=== PATIENT | male | born 1960 | race Caucasian/White ===

== ENCOUNTER 2018-12-26 23:15 | Inpatient (IN) | payer MEDICARE ==
[2018-12-27] MEDS ORDERED: ONDANSETRON 4 MG TAB PO (00:30)
[2018-12-27] MEDS: ACCU-CHEK XX (02:00)
[2018-12-27] MEDS: MIDODRINE 5 MG TAB PO ×4 (05:38→21:25)
[2018-12-27 05:42] LABS: ADD MAN DIFF? NO
[2018-12-27 05:56] LABS: ABNORMAL IP MESSAGE 1; BASOPHILS % 0.2 % (0.0-2.0); EOSINOPHILS # 0.2 10^3/ul (0.0-0.5); EOSINOPHILS % 2.2 % (0.0-7.0); HEMATOCRIT 19.5 % (42.0-52.0); LYMPHOCYTES # 1.3 10^3/ul (0.8-2.9); LYMPHOCYTES % 15.2 % (15.0-51.0); MEAN CORPUSCULAR HEMOGLOBIN 29.9 pg (29.0-33.0); MEAN CORPUSCULAR HGB CONC 30.8 g/dl (32.0-37.0); MEAN PLATELET VOLUME 11.5 fl (7.4-10.4); MONOCYTE # 0.7 10^3/ul (0.3-0.9); NEUTROPHIL # 6.1 10^3/ul (1.6-7.5); NEUTROPHILS % 73.6 % (39.0-77.0); NUCLEATED RED BLOOD CELLS% 0.2 /100WBC (0.0-0.0); PLATELET COUNT 118 10^3/UL (140-415); POSITIVE DIFF @See below; RED BLOOD COUNT 2.01 10^6/ul (4.70-6.10); RED CELL DISTRIBUTION WIDTH 18.1 % (11.5-14.5)
[2018-12-27 05:56] LABS: WHITE BLOOD COUNT 8.4 10^3/ul (4.8-10.8)
[2018-12-27 06:27] LABS: ANION GAP 12 (5-13); BLOOD UREA NITROGEN 68 mg/dl (7-20); CALCIUM 8.5 mg/dl (8.4-10.2); CARBON DIOXIDE 26 mmol/L (21-31); CHLORIDE 104 mmol/L (97-110); CREATININE 5.97 mg/dl (0.61-1.24); Estimated GFR 10 mL/min (>60); GLUCOSE 104 mg/dl (70-220); POTASSIUM 4.6 mmol/L (3.5-5.1); SODIUM 142 mmol/L (135-144)
[2018-12-27] MEDS: INSULIN ASPART [NOVOLOG] 3 ML PEN SC ×4 (07:35→21:00)
[2018-12-27] MEDS ORDERED: CYMBALTA 30 MG PO (09:00)
[2018-12-27] MEDS: PREGABALIN 25 MG CAP PO ×2 (09:00→21:13)
[2018-12-27] MEDS: FERROUS SULFATE (EC) 325 MG TAB PO ×2 (09:24→21:13)
[2018-12-27] MEDS: ATORVASTATIN 10 MG TAB PO (09:24)
[2018-12-27] MEDS: MULTIVIT/CA CARB/B CMPLX/FA TAB PO (09:24)
[2018-12-27] MEDS: WARFARIN 2 MG TAB PO (09:24)
[2018-12-27] MEDS: PANTOPRAZOLE (EC) 40 MG TAB PO (09:24)
[2018-12-27] MEDS: DULOXETINE 30 MG CAP DR PO (09:24)
[2018-12-27] MEDS: HYDROCORTISONE 20 MG TAB PO ×2 (09:24→21:13)
[2018-12-27] MEDS ORDERED: GLUCOSE GEL 15 GRAM TUBE BUCCAL (11:00)
[2018-12-27] MEDS ORDERED: GLUCAGON 1 MG INJ IM (11:00)
[2018-12-27] MEDS ORDERED: DEXTROSE 50% 50 ML SYRINGE IV (11:00)
[2018-12-27] MEDS ORDERED: GLUCOSE GEL 15 GRAM TUBE PO ×2 (11:00)
[2018-12-27] MEDS ORDERED: NORepinephrine 8MG/250 ML (PMX 250 ML IV (11:00)
[2018-12-27 11:11] LABS: ALANINE AMINOTRANSFERASE 32 IU/L (13-69); ALBUMIN 2.5 g/dl (3.3-4.9); ALKALINE PHOSPHATASE 57 IU/L (42-121); ASPARTATE AMINO TRANSFERASE 42 IU/L (15-46); BILIRUBIN,INDIRECT 0.2 mg/dl (0-1.1); BILIRUBIN,TOTAL 0.2 mg/dl (0.2-1.3); TOTAL PROTEIN 4.8 g/dl (6.1-8.1)
[2018-12-27 11:29] LABS: INR 2.83; PROTIME 29.8 Sec (11.9-14.9); PT RATIO 2.3
[2018-12-27] MEDS: ACETAMINOPHEN 325 MG TAB PO (11:58)
[2018-12-27 15:10] LABS: HEMATOCRIT 25.3 % (42.0-52.0); HEMOGLOBIN 8.2 g/dl (14.0-18.0)
[2018-12-27] MEDS: NORepinephrine 8MG/250 ML (PMX 250 ML IV (15:22)
[2018-12-27] MEDS ORDERED: WARFARIN 2 MG TAB PO (17:00)
[2018-12-27] MEDS: SEVELAMER CARBONATE 0.8 GM PKT PO (17:35)
[2018-12-27 23:24] LABS: HEMATOCRIT 24.9 % (42.0-52.0); HEMOGLOBIN 7.9 g/dl (14.0-18.0)
[2018-12-28] MEDS: ACCU-CHEK XX (02:00)
[2018-12-28] MEDS: MIDODRINE 5 MG TAB PO ×4 (05:42→21:33)
[2018-12-28 06:28] LABS: ADD MAN DIFF? NO
[2018-12-28 06:29] LABS: BASOPHILS % 0.2 % (0.0-2.0); EOSINOPHILS # 0.2 10^3/ul (0.0-0.5); EOSINOPHILS % 2.6 % (0.0-7.0); HEMATOCRIT 24.7 % (42.0-52.0); HEMOGLOBIN 7.6 g/dl (14.0-18.0); LYMPHOCYTES % 11.6 % (15.0-51.0); MEAN CORPUSCULAR HEMOGLOBIN 29.7 pg (29.0-33.0); MEAN CORPUSCULAR HGB CONC 30.8 g/dl (32.0-37.0); MEAN CORPUSCULAR VOLUME 96.5 fl (82.0-101.0); MEAN PLATELET VOLUME 11.4 fl (7.4-10.4); MONOCYTE # 0.7 10^3/ul (0.3-0.9); MONOCYTES % 7.2 % (0.0-11.0); NEUTROPHIL # 6.9 10^3/ul (1.6-7.5); NEUTROPHILS % 77.1 % (39.0-77.0); NUCLEATED RED BLOOD CELLS # 0.1 10^3/ul (0.0-0.0); NUCLEATED RED BLOOD CELLS% 0.9 /100WBC (0.0-0.0); PLATELET COUNT 122 10^3/UL (140-415); RED BLOOD COUNT 2.56 10^6/ul (4.70-6.10); RED CELL DISTRIBUTION WIDTH 17.9 % (11.5-14.5)
[2018-12-28 07:09] LABS: ANION GAP 14 (5-13); BLOOD UREA NITROGEN 77 mg/dl (7-20); CARBON DIOXIDE 25 mmol/L (21-31); CHLORIDE 103 mmol/L (97-110); CREATININE 7.26 mg/dl (0.61-1.24); Estimated GFR 8 mL/min (>60); GLUCOSE 86 mg/dl (70-220); PHOSPHORUS 7.9 mg/dl (2.5-4.9); POTASSIUM 4.9 mmol/L (3.5-5.1); SODIUM 142 mmol/L (135-144)
[2018-12-28] MEDS: INSULIN ASPART [NOVOLOG] 3 ML PEN SC ×4 (07:35→20:16)
[2018-12-28] MEDS: PREGABALIN 25 MG CAP PO ×2 (08:17→20:16)
[2018-12-28] MEDS: MULTIVIT/CA CARB/B CMPLX/FA TAB PO (08:17)
[2018-12-28] MEDS: DULOXETINE 30 MG CAP DR PO (08:17)
[2018-12-28] MEDS: ATORVASTATIN 10 MG TAB PO (08:18)
[2018-12-28] MEDS: PANTOPRAZOLE (EC) 40 MG TAB PO (08:18)
[2018-12-28] MEDS: HYDROCORTISONE 20 MG TAB PO ×2 (08:18→20:16)
[2018-12-28] MEDS: FERROUS SULFATE (EC) 325 MG TAB PO ×2 (08:18→20:16)
[2018-12-28 09:38] LABS: INR 4.61; PROTIME 43.5 Sec (11.9-14.9); PT RATIO 3.4
[2018-12-28] MEDS: IOHEXOL 14.3 MG(I)/ML (ADULT) BTL PO (12:10)
[2018-12-28 12:19] LABS: HEMATOCRIT 25.7 % (42.0-52.0); HEMOGLOBIN 8.1 g/dl (14.0-18.0)
[2018-12-28 13:53] LABS: HEPATITIS B SURFACE ANTIBODY NEGATIVE (NEGATIVE)
[2018-12-28 15:36] LABS: HEPATITIS B SURFACE ANTIGEN NEGATIVE (NEGATIVE)
[2018-12-28] MEDS ORDERED: PIPER-TAZO 2.25 GM (PMX) 50 ML IVPB (16:00)
[2018-12-28 16:04] LABS: HEMATOCRIT 25.6 % (42.0-52.0); HEMOGLOBIN 8.1 g/dl (14.0-18.0)
[2018-12-28] MEDS: SEVELAMER CARBONATE 0.8 GM PKT PO (16:53)
[2018-12-28] MEDS: ALBUMIN HUMAN 25% 100 ML IV (19:00)
[2018-12-28] MEDS: PIPER-TAZO 2.25 GM (PMX) 50 ML IVPB (20:16)
[2018-12-28 23:40] LABS: HEMATOCRIT 24.1 % (42.0-52.0); HEMOGLOBIN 7.6 g/dl (14.0-18.0)
[2018-12-29] MEDS: ACCU-CHEK XX (01:38)
[2018-12-29] MEDS: PIPER-TAZO 2.25 GM (PMX) 50 ML IVPB ×3 (04:42→20:59)
[2018-12-29] MEDS: ACETAMINOPHEN 325 MG TAB PO (04:48)
[2018-12-29 05:43] LABS: ADD MAN DIFF? NO
[2018-12-29] MEDS: MIDODRINE 5 MG TAB PO ×3 (05:49→21:00)
[2018-12-29 05:58] LABS: WHITE BLOOD COUNT 8.6 10^3/ul (4.8-10.8)
[2018-12-29 05:58] LABS: BASOPHILS % 0.2 % (0.0-2.0); EOSINOPHILS # 0.2 10^3/ul (0.0-0.5); EOSINOPHILS % 2.2 % (0.0-7.0); HEMATOCRIT 25.2 % (42.0-52.0); HEMOGLOBIN 7.9 g/dl (14.0-18.0); LYMPHOCYTES % 11.5 % (15.0-51.0); MEAN CORPUSCULAR HEMOGLOBIN 30.6 pg (29.0-33.0); MEAN CORPUSCULAR HGB CONC 31.3 g/dl (32.0-37.0); MEAN CORPUSCULAR VOLUME 97.7 fl (82.0-101.0); MONOCYTE # 0.5 10^3/ul (0.3-0.9); NEUTROPHIL # 6.8 10^3/ul (1.6-7.5); NEUTROPHILS % 79.2 % (39.0-77.0); NUCLEATED RED BLOOD CELLS% 0.3 /100WBC (0.0-0.0); PLATELET COUNT 143 10^3/UL (140-415); RED BLOOD COUNT 2.58 10^6/ul (4.70-6.10)
[2018-12-29 06:09] LABS: INR 4.02; PROTIME 39.1 Sec (11.9-14.9); PT RATIO 3.1
[2018-12-29 06:32] LABS: ANION GAP 12 (5-13); BLOOD UREA NITROGEN 41 mg/dl (7-20); CARBON DIOXIDE 27 mmol/L (21-31); CHLORIDE 101 mmol/L (97-110); CREATININE 4.89 mg/dl (0.61-1.24); Estimated GFR 12 mL/min (>60); GLUCOSE 77 mg/dl (70-220); PHOSPHORUS 5.4 mg/dl (2.5-4.9); POTASSIUM 4.3 mmol/L (3.5-5.1); SODIUM 140 mmol/L (135-144)
[2018-12-29] MEDS: INSULIN ASPART [NOVOLOG] 3 ML PEN SC ×4 (07:35→21:00)
[2018-12-29] MEDS: FERROUS SULFATE (EC) 325 MG TAB PO ×2 (08:21→20:59)
[2018-12-29] MEDS: PANTOPRAZOLE (EC) 40 MG TAB PO ×2 (08:21→21:00)
[2018-12-29] MEDS: HYDROCORTISONE 20 MG TAB PO ×2 (08:21→20:59)
[2018-12-29] MEDS: PREGABALIN 25 MG CAP PO ×2 (08:21→21:07)
[2018-12-29] MEDS: ATORVASTATIN 10 MG TAB PO (08:21)
[2018-12-29] MEDS: MULTIVIT/CA CARB/B CMPLX/FA TAB PO (08:21)
[2018-12-29] MEDS: DULOXETINE 30 MG CAP DR PO (08:21)
[2018-12-29 15:59] LABS: HEMATOCRIT 24.9 % (42.0-52.0); HEMOGLOBIN 7.7 g/dl (14.0-18.0)
[2018-12-29] MEDS: SEVELAMER CARBONATE 0.8 GM PKT PO (17:31)
[2018-12-29 23:52] LABS: HEMATOCRIT 24.9 % (42.0-52.0); HEMOGLOBIN 7.7 g/dl (14.0-18.0)
[2018-12-30] MEDS: ACCU-CHEK XX (02:06)
[2018-12-30] MEDS: PIPER-TAZO 2.25 GM (PMX) 50 ML IVPB ×3 (04:17→20:02)
[2018-12-30 04:59] LABS: ADD MAN DIFF? NO
[2018-12-30 05:07] LABS: WHITE BLOOD COUNT 9.8 10^3/ul (4.8-10.8)
[2018-12-30 05:07] LABS: BASOPHILS % 0.3 % (0.0-2.0); EOSINOPHILS # 0.1 10^3/ul (0.0-0.5); EOSINOPHILS % 1.4 % (0.0-7.0); HEMATOCRIT 25.2 % (42.0-52.0); HEMOGLOBIN 7.6 g/dl (14.0-18.0); LYMPHOCYTES # 1.1 10^3/ul (0.8-2.9); LYMPHOCYTES % 10.8 % (15.0-51.0); MEAN CORPUSCULAR HGB CONC 30.2 g/dl (32.0-37.0); MEAN CORPUSCULAR VOLUME 99.6 fl (82.0-101.0); MEAN PLATELET VOLUME 10.6 fl (7.4-10.4); MONOCYTE # 0.5 10^3/ul (0.3-0.9); MONOCYTES % 5.5 % (0.0-11.0); NEUTROPHIL # 7.9 10^3/ul (1.6-7.5); NEUTROPHILS % 81.1 % (39.0-77.0); NUCLEATED RED BLOOD CELLS% 0.4 /100WBC (0.0-0.0); PLATELET COUNT 138 10^3/UL (140-415); RED BLOOD COUNT 2.53 10^6/ul (4.70-6.10); RED CELL DISTRIBUTION WIDTH 18.4 % (11.5-14.5)
[2018-12-30] MEDS: MIDODRINE 5 MG TAB PO ×3 (05:38→22:35)
[2018-12-30 05:42] LABS: ANION GAP 10 (5-13); BLOOD UREA NITROGEN 49 mg/dl (7-20); CARBON DIOXIDE 27 mmol/L (21-31); CHLORIDE 102 mmol/L (97-110); CREATININE 6.02 mg/dl (0.61-1.24); Estimated GFR 10 mL/min (>60); GLUCOSE 85 mg/dl (70-220); PHOSPHORUS 6.9 mg/dl (2.5-4.9); POTASSIUM 4.5 mmol/L (3.5-5.1); SODIUM 139 mmol/L (135-144)
[2018-12-30] MEDS: INSULIN ASPART [NOVOLOG] 3 ML PEN SC ×4 (07:35→21:00)
[2018-12-30] MEDS: HYDROCORTISONE 20 MG TAB PO ×2 (09:15→20:44)
[2018-12-30] MEDS: PREGABALIN 25 MG CAP PO ×2 (09:15→20:44)
[2018-12-30] MEDS: PANTOPRAZOLE (EC) 40 MG TAB PO ×2 (09:15→20:44)
[2018-12-30] MEDS: MULTIVIT/CA CARB/B CMPLX/FA TAB PO (09:15)
[2018-12-30] MEDS: FERROUS SULFATE (EC) 325 MG TAB PO ×2 (09:15→20:43)
[2018-12-30] MEDS: ATORVASTATIN 10 MG TAB PO (09:15)
[2018-12-30] MEDS: DULOXETINE 30 MG CAP DR PO (09:15)
[2018-12-30 10:35] LABS: HEMATOCRIT 26.5 % (42.0-52.0); HEMOGLOBIN 8.1 g/dl (14.0-18.0)
[2018-12-30 10:56] LABS: PT RATIO 2.5
[2018-12-30] MEDS: NORepinephrine 8MG/250 ML (PMX 250 ML IV (13:23)
[2018-12-30] MEDS: ALBUMIN HUMAN 25% 100 ML IV (16:46)
[2018-12-30] MEDS: SEVELAMER CARBONATE 0.8 GM PKT PO (17:21)
[2018-12-30] MEDS: DEXTROSE 50% 50 ML SYRINGE IV (20:02)
[2018-12-31] MEDS: ACCU-CHEK XX (02:00)
[2018-12-31] MEDS: PIPER-TAZO 2.25 GM (PMX) 50 ML IVPB ×3 (04:34→20:08)
[2018-12-31 04:56] LABS: HEMATOCRIT 24.1 % (42.0-52.0); HEMOGLOBIN 7.1 g/dl (14.0-18.0)
[2018-12-31] MEDS: MIDODRINE 5 MG TAB PO ×3 (06:21→21:34)
[2018-12-31] MEDS: INSULIN ASPART [NOVOLOG] 3 ML PEN SC ×4 (07:35→20:31)
[2018-12-31] MEDS: ATORVASTATIN 10 MG TAB PO (08:53)
[2018-12-31] MEDS: HYDROCORTISONE 20 MG TAB PO ×2 (08:53→20:19)
[2018-12-31] MEDS: DULOXETINE 30 MG CAP DR PO (08:53)
[2018-12-31] MEDS: MULTIVIT/CA CARB/B CMPLX/FA TAB PO (08:53)
[2018-12-31] MEDS: FERROUS SULFATE (EC) 325 MG TAB PO ×2 (08:54→20:19)
[2018-12-31] MEDS: PREGABALIN 25 MG CAP PO ×2 (09:06→20:19)
[2018-12-31] MEDS: PANTOPRAZOLE (EC) 40 MG TAB PO ×2 (09:07→20:19)
[2018-12-31 10:33] LABS: INR 2.71; PROTIME 28.8 Sec (11.9-14.9); PT RATIO 2.3
[2018-12-31] MEDS: SEVELAMER CARBONATE 0.8 GM PKT PO (17:23)
[2018-12-31] MEDS: GLUCAGON 1 MG INJ IV (18:50)
[2018-12-31] MEDS: IOHEXOL 14.3 MG(I)/ML (ADULT) BTL PO (19:00)
[2019-01-01] MEDS: ACCU-CHEK XX (02:00)
[2019-01-01] MEDS: PIPER-TAZO 2.25 GM (PMX) 50 ML IVPB ×3 (03:40→20:20)
[2019-01-01] MEDS: MIDODRINE 5 MG TAB PO ×4 (05:23→21:00)
[2019-01-01 05:34] LABS: ADD MAN DIFF? NO
[2019-01-01 06:01] LABS: BASOPHILS % 0.1 % (0.0-2.0); EOSINOPHILS # 0.1 10^3/ul (0.0-0.5); HEMATOCRIT 28.8 % (42.0-52.0); HEMOGLOBIN 8.6 g/dl (14.0-18.0); LYMPHOCYTES % 11.4 % (15.0-51.0); MEAN CORPUSCULAR HEMOGLOBIN 30.1 pg (29.0-33.0); MEAN CORPUSCULAR HGB CONC 29.9 g/dl (32.0-37.0); MEAN CORPUSCULAR VOLUME 100.7 fl (82.0-101.0); MEAN PLATELET VOLUME 10.4 fl (7.4-10.4); MONOCYTE # 0.5 10^3/ul (0.3-0.9); MONOCYTES % 5.3 % (0.0-11.0); NEUTROPHILS % 81.2 % (39.0-77.0); PLATELET COUNT 129 10^3/UL (140-415); RED BLOOD COUNT 2.86 10^6/ul (4.70-6.10); RED CELL DISTRIBUTION WIDTH 19.2 % (11.5-14.5)
[2019-01-01 06:01] LABS: WHITE BLOOD COUNT 8.6 10^3/ul (4.8-10.8)
[2019-01-01 06:35] LABS: ANION GAP 13 (5-13); BLOOD UREA NITROGEN 31 mg/dl (7-20); CALCIUM 9.2 mg/dl (8.4-10.2); CARBON DIOXIDE 25 mmol/L (21-31); CHLORIDE 101 mmol/L (97-110); CREATININE 5.95 mg/dl (0.61-1.24); Estimated GFR 10 mL/min (>60); GLUCOSE 77 mg/dl (70-220); MAGNESIUM 2.1 mg/dl (1.7-2.5); PHOSPHORUS 6.4 mg/dl (2.5-4.9); SODIUM 139 mmol/L (135-144)
[2019-01-01] MEDS: INSULIN ASPART [NOVOLOG] 3 ML PEN SC ×4 (07:35→20:56)
[2019-01-01] MEDS: PREGABALIN 25 MG CAP PO ×2 (08:12→20:15)
[2019-01-01] MEDS: ATORVASTATIN 10 MG TAB PO (08:13)
[2019-01-01] MEDS: MULTIVIT/CA CARB/B CMPLX/FA TAB PO (08:13)
[2019-01-01] MEDS: DULOXETINE 30 MG CAP DR PO (08:13)
[2019-01-01] MEDS: HYDROCORTISONE 20 MG TAB PO ×2 (08:13→20:55)
[2019-01-01] MEDS: FERROUS SULFATE (EC) 325 MG TAB PO ×2 (08:13→20:55)
[2019-01-01] MEDS: PANTOPRAZOLE (EC) 40 MG TAB PO (08:13)
[2019-01-01 09:11] LABS: INR 2.19; PROTIME 24.4 Sec (11.9-14.9); PT RATIO 1.9
[2019-01-01 09:12] LABS: PARTIAL THROMBOPLASTIN TIME 39.1 Sec (23.0-35.0)
[2019-01-01] MEDS: DEXTROSE 50% 50 ML SYRINGE IV (11:19)
[2019-01-01] MEDS: DEXTROSE 5%-0.9% NACL 1,000 ML IV (12:00)
[2019-01-01] MEDS: SEVELAMER CARBONATE 0.8 GM PKT PO (17:23)
[2019-01-01] MEDS ORDERED: FENTAnyl 50 MCG/ML VIAL (18:36)
[2019-01-01] MEDS ORDERED: IODIXANOL LOCM 100 ML BTL (18:36)
[2019-01-01] MEDS ORDERED: MIDAZOLAM 1 MG/ML 2 ML INJ (18:36)
[2019-01-01] MEDS ORDERED: LIDOCAINE 1% (MDV) 20 ML INJ ×2 (18:36→19:17)
[2019-01-01] MEDS ORDERED: ALBUMIN HUMAN 25% 100 ML (18:40)
[2019-01-01] MEDS: ALBUMIN HUMAN 25% 100 ML IV (18:47)
[2019-01-01] MEDS: NORepinephrine 8MG/250 ML (PMX 250 ML IV (19:31)
[2019-01-01] MEDS: WARFARIN 2.5 MG TAB GTB (19:59)
[2019-01-01 21:16] LABS: PLATELET COUNT 156 10^3/UL (140-415)
[2019-01-01] MEDS: PANTOPRAZOLE 40 MG INJ IV (21:24)
[2019-01-01 21:37] LABS: INR 2.11; PROTIME 23.7 Sec (11.9-14.9); PT RATIO 1.9; THROMBIN TIME 16.4 SEC (13.8-19.1)
[2019-01-01 21:38] LABS: PARTIAL THROMBOPLASTIN TIME 43.5 Sec (23.0-35.0)
[2019-01-02] MEDS: ACCU-CHEK XX (02:00)
[2019-01-02] MEDS: ALBUMIN HUMAN 25% 100 ML IV ×2 (02:37→10:03)
[2019-01-02] MEDS: PIPER-TAZO 2.25 GM (PMX) 50 ML IVPB ×3 (04:07→20:13)
[2019-01-02] MEDS: MIDODRINE 5 MG TAB PO ×3 (05:00→21:13)
[2019-01-02] MEDS: NORepinephrine 8MG/250 ML (PMX 250 ML IV ×4 (05:39→20:27)
[2019-01-02 05:59] LABS: HEMATOCRIT 28.1 % (42.0-52.0); HEMOGLOBIN 8.3 g/dl (14.0-18.0)
[2019-01-02 06:16] LABS: LACTIC ACID 0.9 mmol/L (0.5-2.0)
[2019-01-02 06:32] LABS: AADO2 Arterial 37.1 mmHg (7.0-24.0); Allen Test ACCEPTAB; Arterial Base Excess -7.8 mmol/L (-3.0-3); Arterial Blood Gas Oxygen Sat 86.4 mmHG (95.0-98.0); Arterial COHb 0.6 % (0.0-3.0); Arterial Fraction of Oxyhgb 85.5 % (93.0-99.0); Arterial HCO3 23.2 mmol/L (22.0-26.0); Arterial MetHb 0.4 % (0.0-1.5); Arterial pCO2 84.7 mmhg (35-45); MODE NASAL CANNULA; Site Left Radial
[2019-01-02 06:53] LABS: ALANINE AMINOTRANSFERASE 28 IU/L (13-69); ALBUMIN 3.6 g/dl (3.3-4.9); ALBUMIN/GLOBULIN RATIO 1.56; ALKALINE PHOSPHATASE 78 IU/L (42-121); ANION GAP 14 (5-13); ASPARTATE AMINO TRANSFERASE 45 IU/L (15-46); BILIRUBIN,INDIRECT 0.1 mg/dl (0-1.1); BILIRUBIN,TOTAL 0.1 mg/dl (0.2-1.3); BLOOD UREA NITROGEN 35 mg/dl (7-20); CARBON DIOXIDE 25 mmol/L (21-31); CHLORIDE 102 mmol/L (97-110); CREATININE 6.86 mg/dl (0.61-1.24); Estimated GFR 8 mL/min (>60); GLUCOSE 145 mg/dl (70-220); POTASSIUM 3.7 mmol/L (3.5-5.1); SODIUM 141 mmol/L (135-144); TOTAL PROTEIN 5.9 g/dl (6.1-8.1)
[2019-01-02 07:06] LABS: ADD MAN DIFF? NO
[2019-01-02 07:11] LABS: WHITE BLOOD COUNT 14.4 10^3/ul (4.8-10.8)
[2019-01-02 07:11] LABS: BASOPHIL # 0.1 10^3/ul (0.0-0.1); BASOPHILS % 0.4 % (0.0-2.0); EOSINOPHILS # 0.4 10^3/ul (0.0-0.5); EOSINOPHILS % 2.8 % (0.0-7.0); HEMATOCRIT 32.2 % (42.0-52.0); HEMOGLOBIN 9.5 g/dl (14.0-18.0); LYMPHOCYTES # 1.9 10^3/ul (0.8-2.9); LYMPHOCYTES % 12.9 % (15.0-51.0); MEAN CORPUSCULAR HEMOGLOBIN 30.2 pg (29.0-33.0); MEAN CORPUSCULAR HGB CONC 29.5 g/dl (32.0-37.0); MEAN CORPUSCULAR VOLUME 102.2 fl (82.0-101.0); MEAN PLATELET VOLUME 10.4 fl (7.4-10.4); MONOCYTE # 0.8 10^3/ul (0.3-0.9); MONOCYTES % 5.8 % (0.0-11.0); NEUTROPHILS % 76.6 % (39.0-77.0); NUCLEATED RED BLOOD CELLS # 0.1 10^3/ul (0.0-0.0); NUCLEATED RED BLOOD CELLS% 0.8 /100WBC (0.0-0.0); PLATELET COUNT 156 10^3/UL (140-415); RED BLOOD COUNT 3.15 10^6/ul (4.70-6.10); RED CELL DISTRIBUTION WIDTH 19.5 % (11.5-14.5)
[2019-01-02] MEDS: INSULIN ASPART [NOVOLOG] 3 ML PEN SC ×4 (07:35→22:39)
[2019-01-02] MEDS: PREGABALIN 25 MG CAP PO ×2 (08:34→20:29)
[2019-01-02] MEDS: FERROUS SULFATE (EC) 325 MG TAB PO ×2 (08:34→20:28)
[2019-01-02] MEDS: DULOXETINE 30 MG CAP DR PO (08:34)
[2019-01-02] MEDS: HYDROCORTISONE 20 MG TAB PO (08:34)
[2019-01-02] MEDS: ATORVASTATIN 10 MG TAB PO (08:34)
[2019-01-02] MEDS: MULTIVIT/CA CARB/B CMPLX/FA TAB PO (08:35)
[2019-01-02] MEDS: PANTOPRAZOLE 40 MG INJ IV ×2 (09:01→20:14)
[2019-01-02 09:49] LABS: AADO2 Arterial 310.9 mmHg (7.0-24.0); Allen Test ACCEPTAB; Arterial Base Excess -4.4 mmol/L (-3.0-3); Arterial Blood Gas Oxygen Sat 97.3 mmHG (95.0-98.0); Arterial COHb 0.2 % (0.0-3.0); Arterial Fraction of Oxyhgb 96.7 % (93.0-99.0); Arterial HCO3 25.3 mmol/L (22.0-26.0); Arterial MetHb 0.4 % (0.0-1.5); Arterial pCO2 75.3 mmhg (35-45); Blood Gas IEPAP 20/5; Blood Gas PS 15; MODE MASK - BIPAP; Site Right Radial
[2019-01-02 11:05] LABS: LACTIC ACID 0.6 mmol/L (0.5-2.0)
[2019-01-02 11:14] LABS: PROCALCITONIN 0.87 ng/mL (0.00-0.10)
[2019-01-02 11:29] LABS: INR 2.03; PT RATIO 1.8
[2019-01-02 12:17] LABS: ALANINE AMINOTRANSFERASE 27 IU/L (13-69); ALBUMIN/GLOBULIN RATIO 1.66; ALKALINE PHOSPHATASE 83 IU/L (42-121); ANION GAP 14 (5-13); ASPARTATE AMINO TRANSFERASE 38 IU/L (15-46); BILIRUBIN,INDIRECT 0.2 mg/dl (0-1.1); BILIRUBIN,TOTAL 0.2 mg/dl (0.2-1.3); BLOOD UREA NITROGEN 22 mg/dl (7-20); CALCIUM 8.9 mg/dl (8.4-10.2); CARBON DIOXIDE 27 mmol/L (21-31); CHLORIDE 100 mmol/L (97-110); CREATININE 4.29 mg/dl (0.61-1.24); Estimated GFR 14 mL/min (>60); GLUCOSE 125 mg/dl (70-220); MAGNESIUM 1.9 mg/dl (1.7-2.5); POTASSIUM 3.3 mmol/L (3.5-5.1); SODIUM 141 mmol/L (135-144); TOTAL PROTEIN 6.4 g/dl (6.1-8.1); TRIGLYCERIDES 148 mg/dl (0-149)
[2019-01-02 12:24] LABS: PREALBUMIN 10.3 mg/dl (17.6-36.0)
[2019-01-02] MEDS: HYDROCORTISONE 100 MG INJ IV ×2 (13:51→21:18)
[2019-01-02] MEDS: DEXTROSE 5%-0.9% NACL 1,000 ML IV (13:52)
[2019-01-02] MEDS ORDERED: VANCOMYCIN IV PER PHARMACY XX (15:00)
[2019-01-02] MEDS: WARFARIN 2.5 MG TAB GTB (16:24)
[2019-01-02] MEDS: SEVELAMER CARBONATE 0.8 GM PKT PO (16:43)
[2019-01-02] MEDS: VASOPRESSIN 60 UNIT in DEXTROSE 5% 57 ML IV (17:39)
[2019-01-02] MEDS: VANCOMYCIN HCL 2 GM in SOD CHLORIDE 0.9% 500 ML IVPB (20:13)
[2019-01-03 01:01] LABS: HEMATOCRIT 25.1 % (42.0-52.0); HEMOGLOBIN 7.5 g/dl (14.0-18.0)
[2019-01-03] MEDS: SOD CHLORIDE 0.9% 250 ML IV* (01:53)
[2019-01-03] MEDS: ACCU-CHEK XX ×4 (02:00→21:49)
[2019-01-03] MEDS: NORepinephrine 8MG/250 ML (PMX 250 ML IV ×2 (02:01→08:43)
[2019-01-03] MEDS: DEXTROSE 5%-0.9% NACL 1,000 ML IV (04:00)
[2019-01-03] MEDS: PIPER-TAZO 2.25 GM (PMX) 50 ML IVPB ×2 (04:53→12:40)
[2019-01-03 05:10] LABS: AADO2 Arterial 92.1 mmHg (7.0-24.0); Allen Test ACCEPTAB; Arterial Base Excess -4.9 mmol/L (-3.0-3); Arterial Blood Gas Oxygen Sat 92.7 mmHG (95.0-98.0); Arterial COHb 0.6 % (0.0-3.0); Arterial Fraction of Oxyhgb 91.7 % (93.0-99.0); Arterial HCO3 23.6 mmol/L (22.0-26.0); Arterial MetHb 0.5 % (0.0-1.5); Arterial pCO2 63.8 mmhg (35-45); MODE NASAL CANNULA; Site Right Radial
[2019-01-03] MEDS: HYDROCORTISONE 100 MG INJ IV ×3 (05:34→21:49)
[2019-01-03] MEDS: MIDODRINE 5 MG TAB PO ×3 (05:34→21:49)
[2019-01-03 07:54] LABS: IMMEDIATE SPIN CROSSMATCH 1 3
[2019-01-03 07:54] LABS: ADD MAN DIFF? NO
[2019-01-03 07:57] LABS: WHITE BLOOD COUNT 9.2 10^3/ul (4.8-10.8)
[2019-01-03 07:57] LABS: ABNORMAL IP MESSAGE 1; HEMATOCRIT 25.5 % (42.0-52.0); HEMOGLOBIN 7.7 g/dl (14.0-18.0); LYMPHOCYTES # 0.5 10^3/ul (0.8-2.9); LYMPHOCYTES % 5.2 % (15.0-51.0); MEAN CORPUSCULAR HGB CONC 30.2 g/dl (32.0-37.0); MEAN CORPUSCULAR VOLUME 99.2 fl (82.0-101.0); MEAN PLATELET VOLUME 10.6 fl (7.4-10.4); MONOCYTE # 0.4 10^3/ul (0.3-0.9); MONOCYTES % 4.4 % (0.0-11.0); NEUTROPHIL # 8.2 10^3/ul (1.6-7.5); NEUTROPHILS % 89.6 % (39.0-77.0); NUCLEATED RED BLOOD CELLS% 0.3 /100WBC (0.0-0.0); PLATELET COUNT 76 10^3/UL (140-415); POSITIVE DIFF @See below; RED BLOOD COUNT 2.57 10^6/ul (4.70-6.10); RED CELL DISTRIBUTION WIDTH 19.9 % (11.5-14.5)
[2019-01-03] MEDS: DULOXETINE 30 MG CAP DR PO (08:12)
[2019-01-03] MEDS: ATORVASTATIN 10 MG TAB PO (08:12)
[2019-01-03] MEDS: FERROUS SULFATE (EC) 325 MG TAB PO ×2 (08:12→21:00)
[2019-01-03] MEDS: INSULIN ASPART [NOVOLOG] 3 ML PEN SC ×4 (08:12→22:31)
[2019-01-03] MEDS: PREGABALIN 25 MG CAP PO ×2 (08:13→21:00)
[2019-01-03] MEDS: MULTIVIT/CA CARB/B CMPLX/FA TAB PO (08:13)
[2019-01-03 08:16] LABS: LACTIC ACID 0.6 mmol/L (0.5-2.0)
[2019-01-03 08:22] LABS: ANION GAP 11 (5-13); BLOOD UREA NITROGEN 20 mg/dl (7-20); CALCIUM 8.1 mg/dl (8.4-10.2); CARBON DIOXIDE 25 mmol/L (21-31); CHLORIDE 105 mmol/L (97-110); CREATININE 4.81 mg/dl (0.61-1.24); Estimated GFR 12 mL/min (>60); GLUCOSE 167 mg/dl (70-220); MAGNESIUM 1.8 mg/dl (1.7-2.5); PHOSPHORUS 4.9 mg/dl (2.5-4.9); POTASSIUM 3.5 mmol/L (3.5-5.1); SODIUM 141 mmol/L (135-144)
[2019-01-03] MEDS: PANTOPRAZOLE 40 MG INJ IV ×2 (08:36→21:49)
[2019-01-03] MEDS: VASOPRESSIN 60 UNIT in DEXTROSE 5% 57 ML IV (08:47)
[2019-01-03 09:06] LABS: AADO2 Arterial 136.5 mmHg (7.0-24.0); Allen Test ACCEPTAB; Arterial Base Excess -4.9 mmol/L (-3.0-3); Arterial Blood Gas Oxygen Sat 95.9 mmHG (95.0-98.0); Arterial COHb 0.4 % (0.0-3.0); Arterial Fraction of Oxyhgb 95.1 % (93.0-99.0); Arterial HCO3 22.7 mmol/L (22.0-26.0); Arterial MetHb 0.4 % (0.0-1.5); Arterial pCO2 55.4 mmhg (35-45); Blood Gas IEPAP 20/5; Blood Gas PS 15; MODE MASK - BIPAP; Site Right Radial
[2019-01-03 11:05] LABS: INR 2.15; PROTIME 24.1 Sec (11.9-14.9); PT RATIO 1.9
[2019-01-03 12:11] LABS: HEMATOCRIT 26.2 % (42.0-52.0); HEMOGLOBIN 8.1 g/dl (14.0-18.0)
[2019-01-03 15:15] LABS: LACTIC ACID < 0.5 mmol/L (0.5-2.0)
[2019-01-03] MEDS: SOD CHLORIDE 0.9% 100 ML (15:24)
[2019-01-03] MEDS: IODIXANOL LOCM 100 ML BTL (15:24)
[2019-01-03] MEDS: IODIXANOL LOCM 50 ML BTL (15:30)
[2019-01-03] MEDS: SEVELAMER CARBONATE 0.8 GM PKT PO (16:35)
[2019-01-03] MEDS: TPN 1,000 ML IV (16:40)
[2019-01-03 18:01] LABS: HEMATOCRIT 25.3 % (42.0-52.0); HEMOGLOBIN 7.9 g/dl (14.0-18.0)
[2019-01-03] MEDS: MEROPENEM 500MG/50 ML (PMX) 50 ML IVPB (21:49)
[2019-01-03 23:07] LABS: AADO2 Arterial 75.3 mmHg (7.0-24.0); Allen Test ACCEPTAB; Arterial Base Excess -3.1 mmol/L (-3.0-3); Arterial Blood Gas Oxygen Sat 95.6 mmHG (95.0-98.0); Arterial COHb 0.4 % (0.0-3.0); Arterial Fraction of Oxyhgb 94.7 % (93.0-99.0); Arterial HCO3 23.2 mmol/L (22.0-26.0); Arterial MetHb 0.5 % (0.0-1.5); Arterial pCO2 48.3 mmhg (35-45); Blood Gas IEPAP 20/5; Blood Gas PS 15; MODE MASK - BIPAP; Site Right Radial
[2019-01-04] MEDS: ACCU-CHEK XX ×7 (01:17→21:10)
[2019-01-04 01:25] LABS: HEMATOCRIT 24.5 % (42.0-52.0); HEMOGLOBIN 7.7 g/dl (14.0-18.0)
[2019-01-04] MEDS: SOD CHLORIDE 0.9% IV (01:39)
[2019-01-04] MEDS: DESMOPRESSIN IV (01:39)
[2019-01-04] MEDS: MIDODRINE 5 MG TAB PO ×3 (05:18→21:11)
[2019-01-04] MEDS: HYDROCORTISONE 100 MG INJ IV ×3 (05:22→21:14)
[2019-01-04 05:49] LABS: ADD MAN DIFF? NO
[2019-01-04 06:00] LABS: ABNORMAL IP MESSAGE 1; HEMATOCRIT 23.6 % (42.0-52.0); HEMOGLOBIN 7.6 g/dl (14.0-18.0); LYMPHOCYTES # 0.3 10^3/ul (0.8-2.9); LYMPHOCYTES % 5.9 % (15.0-51.0); MEAN CORPUSCULAR HEMOGLOBIN 30.4 pg (29.0-33.0); MEAN CORPUSCULAR HGB CONC 32.2 g/dl (32.0-37.0); MEAN CORPUSCULAR VOLUME 94.4 fl (82.0-101.0); MEAN PLATELET VOLUME 11.1 fl (7.4-10.4); MONOCYTE # 0.2 10^3/ul (0.3-0.9); MONOCYTES % 4.1 % (0.0-11.0); NEUTROPHIL # 4.4 10^3/ul (1.6-7.5); NEUTROPHILS % 89.6 % (39.0-77.0); PLATELET COUNT 65 10^3/UL (140-415); POSITIVE DIFF @See below; RED CELL DISTRIBUTION WIDTH 19.2 % (11.5-14.5)
[2019-01-04 06:00] LABS: WHITE BLOOD COUNT 4.9 10^3/ul (4.8-10.8)
[2019-01-04 06:16] LABS: LACTIC ACID 0.5 mmol/L (0.5-2.0)
[2019-01-04 06:18] LABS: MAGNESIUM 1.8 mg/dl (1.7-2.5)
[2019-01-04 06:19] LABS: ANION GAP 9 (5-13); BLOOD UREA NITROGEN 27 mg/dl (7-20); CALCIUM 8.3 mg/dl (8.4-10.2); CARBON DIOXIDE 23 mmol/L (21-31); CHLORIDE 107 mmol/L (97-110); CREATININE 5.58 mg/dl (0.61-1.24); Estimated GFR 10 mL/min (>60); GLUCOSE 168 mg/dl (70-220); PHOSPHORUS 3.9 mg/dl (2.5-4.9); SODIUM 139 mmol/L (135-144)
[2019-01-04 06:22] LABS: VANCOMYCIN,RANDOM 19.6 ug/ml
[2019-01-04 06:23] LABS: POTASSIUM 2.9 mmol/L (3.5-5.1)
[2019-01-04] MEDS: POTASSIUM CHLORIDE 100 ML IVPB ×2 (06:38→08:30)
[2019-01-04] MEDS: INSULIN ASPART [NOVOLOG] 3 ML PEN SC ×4 (07:35→21:27)
[2019-01-04 08:06] LABS: AADO2 Arterial 92.5 mmHg (7.0-24.0); Allen Test ACCEPTAB; Arterial Base Excess -5.4 mmol/L (-3.0-3); Arterial Blood Gas Oxygen Sat 96.5 mmHG (95.0-98.0); Arterial COHb 0.6 % (0.0-3.0); Arterial Fraction of Oxyhgb 95.5 % (93.0-99.0); Arterial HCO3 20.6 mmol/L (22.0-26.0); Arterial MetHb 0.4 % (0.0-1.5); Arterial pCO2 42.3 mmhg (35-45); MODE NASAL CANNULA; Site Right Radial
[2019-01-04] MEDS: ATORVASTATIN 10 MG TAB PO (09:00)
[2019-01-04 10:03] LABS: INR 1.44; PROTIME 17.6 Sec (11.9-14.9); PT RATIO 1.4
[2019-01-04 12:30] LABS: HEMATOCRIT 25.6 % (42.0-52.0); HEMOGLOBIN 8.2 g/dl (14.0-18.0)
[2019-01-04] MEDS: MULTIVIT/CA CARB/B CMPLX/FA TAB PO (16:54)
[2019-01-04] MEDS: FERROUS SULFATE (EC) 325 MG TAB PO ×2 (16:54→21:00)
[2019-01-04] MEDS: PREGABALIN 25 MG CAP PO ×2 (16:55→21:00)
[2019-01-04] MEDS: SEVELAMER CARBONATE 0.8 GM PKT PO (16:55)
[2019-01-04] MEDS: PANTOPRAZOLE 40 MG INJ IV ×2 (16:55→21:09)
[2019-01-04] MEDS: TPN 1,000 ML IV (16:58)
[2019-01-04] MEDS: DULOXETINE 30 MG CAP DR PO (17:04)
[2019-01-04] MEDS: EPOETIN ALFA-EPBX (ESRD) 10,000 UNIT/ML VIAL SC (18:09)
[2019-01-04 19:19] LABS: HEMATOCRIT 24.7 % (42.0-52.0); HEMOGLOBIN 7.8 g/dl (14.0-18.0)
[2019-01-04] MEDS: MEROPENEM 500MG/50 ML (PMX) 50 ML IVPB (21:09)
[2019-01-04] MEDS ORDERED: ZOLPIDEM 5 MG TAB PO (22:30)
[2019-01-05 00:51] LABS: HEMATOCRIT 23.4 % (42.0-52.0); HEMOGLOBIN 7.3 g/dl (14.0-18.0)
[2019-01-05] MEDS ORDERED: INSULIN ASPART [NOVOLOG] 3 ML PEN SC ×2 (01:00→05:00)
[2019-01-05] MEDS: ACCU-CHEK XX ×7 (01:26→20:35)
[2019-01-05] MEDS: Insulin NOVOLOG SS MILD Algorithm (NPO/TPN/ENTERAL FEEDS) SC ×5 (04:34→20:58)
[2019-01-05 05:07] LABS: ADD MAN DIFF? NO
[2019-01-05] MEDS: MIDODRINE 5 MG TAB PO ×3 (05:10→20:28)
[2019-01-05] MEDS: HYDROCORTISONE 100 MG INJ IV ×3 (05:11→20:29)
[2019-01-05 05:17] LABS: ABNORMAL IP MESSAGE 1; LYMPHOCYTES # 0.4 10^3/ul (0.8-2.9); MEAN CORPUSCULAR HEMOGLOBIN 28.9 pg (29.0-33.0); MEAN CORPUSCULAR HGB CONC 30.4 g/dl (32.0-37.0); MEAN PLATELET VOLUME 11.1 fl (7.4-10.4); MONOCYTE # 0.3 10^3/ul (0.3-0.9); MONOCYTES % 4.7 % (0.0-11.0); NEUTROPHIL # 6.3 10^3/ul (1.6-7.5); NEUTROPHILS % 89.7 % (39.0-77.0); PLATELET COUNT 72 10^3/UL (140-415); POSITIVE DIFF @See below; RED BLOOD COUNT 2.42 10^6/ul (4.70-6.10); RED CELL DISTRIBUTION WIDTH 19.7 % (11.5-14.5)
[2019-01-05 05:51] LABS: ANION GAP 5 (5-13); BLOOD UREA NITROGEN 23 mg/dl (7-20); CALCIUM 8.7 mg/dl (8.4-10.2); CARBON DIOXIDE 29 mmol/L (21-31); CHLORIDE 105 mmol/L (97-110); CREATININE 3.74 mg/dl (0.61-1.24); Estimated GFR 17 mL/min (>60); GLUCOSE 162 mg/dl (70-220); MAGNESIUM 1.8 mg/dl (1.7-2.5); PHOSPHORUS 2.9 mg/dl (2.5-4.9); SODIUM 139 mmol/L (135-144)
[2019-01-05 08:31] LABS: IMMEDIATE SPIN CROSSMATCH 1 3
[2019-01-05] MEDS: PREGABALIN 25 MG CAP PO ×2 (09:00→20:28)
[2019-01-05] MEDS: MULTIVIT/CA CARB/B CMPLX/FA TAB PO (09:00)
[2019-01-05] MEDS: DULOXETINE 30 MG CAP DR PO (09:00)
[2019-01-05] MEDS: FERROUS SULFATE (EC) 325 MG TAB PO ×2 (09:00→20:29)
[2019-01-05] MEDS: ATORVASTATIN 10 MG TAB PO (09:00)
[2019-01-05] MEDS: PANTOPRAZOLE 40 MG INJ IV ×2 (09:00→20:27)
[2019-01-05] MEDS: POTASSIUM CHLORIDE 100 ML IVPB ×2 (10:40→12:20)
[2019-01-05] MEDS: SOD CHLORIDE 0.9% 100 ML (12:31)
[2019-01-05] MEDS: IOHEXOL 100 ML (12:32)
[2019-01-05] MEDS: SOD CHLORIDE 0.9% IVPB (12:50)
[2019-01-05] MEDS: DESMOPRESSIN IVPB (12:50)
[2019-01-05 16:17] LABS: HEMATOCRIT 29.1 % (42.0-52.0); HEMOGLOBIN 9.2 g/dl (14.0-18.0)
[2019-01-05] MEDS: OCTREOTIDE 1 MG in DEXTROSE 5% 95 ML IV (16:25)
[2019-01-05] MEDS: OCTREOTIDE 50 MCG in SOD CHLORIDE 0.9% 50 ML IVPB (16:25)
[2019-01-05] MEDS: TPN 1,000 ML IV (16:25)
[2019-01-05] MEDS: SEVELAMER CARBONATE 0.8 GM PKT PO (17:50)
[2019-01-05] MEDS: LACTULOSE 30ML CUP PO ×2 (17:50→20:27)
[2019-01-05] MEDS: PEG/ELECTROLYTES 4L BTL PO (17:50)
[2019-01-05 18:28] LABS: HEMATOCRIT 30.2 % (42.0-52.0); HEMOGLOBIN 9.4 g/dl (14.0-18.0)
[2019-01-05] MEDS: MEROPENEM 500MG/50 ML (PMX) 50 ML IVPB (20:29)
[2019-01-05] MEDS ORDERED: VANCOMYCIN 1 GM 250 ML IVPB (22:00)
[2019-01-05 22:54] LABS: TYPE AND SCREEN 1
[2019-01-06] MEDS: ACCU-CHEK XX ×6 (01:00→21:00)
[2019-01-06] MEDS: LACTULOSE 30ML CUP PO ×8 (01:11→15:00)
[2019-01-06] MEDS: Insulin NOVOLOG SS MILD Algorithm (NPO/TPN/ENTERAL FEEDS) SC ×6 (01:15→19:57)
[2019-01-06 04:48] LABS: ADD MAN DIFF? NO
[2019-01-06 04:54] LABS: WHITE BLOOD COUNT 9.4 10^3/ul (4.8-10.8)
[2019-01-06 04:54] LABS: ABNORMAL IP MESSAGE 1; BASOPHILS % 0.1 % (0.0-2.0); HEMATOCRIT 28.4 % (42.0-52.0); HEMOGLOBIN 8.8 g/dl (14.0-18.0); LYMPHOCYTES # 0.5 10^3/ul (0.8-2.9); LYMPHOCYTES % 5.7 % (15.0-51.0); MEAN CORPUSCULAR HEMOGLOBIN 29.8 pg (29.0-33.0); MEAN CORPUSCULAR VOLUME 96.3 fl (82.0-101.0); MEAN PLATELET VOLUME 11.4 fl (7.4-10.4); MONOCYTE # 0.5 10^3/ul (0.3-0.9); MONOCYTES % 5.2 % (0.0-11.0); NEUTROPHIL # 8.2 10^3/ul (1.6-7.5); NEUTROPHILS % 87.3 % (39.0-77.0); NUCLEATED RED BLOOD CELLS # 0.1 10^3/ul (0.0-0.0); NUCLEATED RED BLOOD CELLS% 0.6 /100WBC (0.0-0.0); PLATELET COUNT 75 10^3/UL (140-415); POSITIVE DIFF @See below; RED BLOOD COUNT 2.95 10^6/ul (4.70-6.10); RED CELL DISTRIBUTION WIDTH 19.6 % (11.5-14.5)
[2019-01-06 05:09] LABS: ANION GAP 11 (5-13); BLOOD UREA NITROGEN 31 mg/dl (7-20); CALCIUM 9.3 mg/dl (8.4-10.2); CARBON DIOXIDE 24 mmol/L (21-31); CHLORIDE 104 mmol/L (97-110); CREATININE 4.67 mg/dl (0.61-1.24); Estimated GFR 13 mL/min (>60); GLUCOSE 195 mg/dl (70-220); MAGNESIUM 1.7 mg/dl (1.7-2.5); PHOSPHORUS 4.9 mg/dl (2.5-4.9); POTASSIUM 3.6 mmol/L (3.5-5.1); SODIUM 139 mmol/L (135-144)
[2019-01-06] MEDS: HYDROCORTISONE 100 MG INJ IV ×3 (05:38→22:18)
[2019-01-06] MEDS: MIDODRINE 5 MG TAB PO ×3 (05:38→22:18)
[2019-01-06] MEDS: PANTOPRAZOLE 40 MG INJ IV ×2 (08:34→20:01)
[2019-01-06] MEDS: PREGABALIN 25 MG CAP PO ×2 (08:34→22:19)
[2019-01-06] MEDS: FERROUS SULFATE (EC) 325 MG TAB PO ×2 (08:34→20:02)
[2019-01-06] MEDS: MULTIVIT/CA CARB/B CMPLX/FA TAB PO (08:34)
[2019-01-06] MEDS: DULOXETINE 30 MG CAP DR PO (08:34)
[2019-01-06] MEDS: ATORVASTATIN 10 MG TAB PO (08:34)
[2019-01-06] MEDS: ALBUMIN HUMAN 25% 100 ML IV (10:04)
[2019-01-06 10:20] LABS: INR 1.33; PROTIME 16.6 Sec (11.9-14.9); PT RATIO 1.3
[2019-01-06] MEDS: DESMOPRESSIN 20 MCG in SOD CHLORIDE 0.9% 50 ML IVPB (12:04)
[2019-01-06] MEDS: POTASSIUM CHLORIDE 100 ML IVPB (12:24)
[2019-01-06] MEDS: MAGNESIUM SULFATE 2 GM/50 ML 50 ML IVPB (12:25)
[2019-01-06 13:09] LABS: HEMATOCRIT 28.3 % (42.0-52.0); HEMOGLOBIN 8.8 g/dl (14.0-18.0)
[2019-01-06] MEDS: OCTREOTIDE 1 MG in DEXTROSE 5% 95 ML IV (13:57)
[2019-01-06] MEDS: MAGNESIUM CITRATE 300 ML BTL PO (13:57)
[2019-01-06] MEDS ORDERED: MIDAZOLAM 1 MG/ML 2 ML INJ (16:00)
[2019-01-06] MEDS ORDERED: FENTAnyl 50 MCG/ML VIAL ×2 (16:00→16:01)
[2019-01-06] MEDS: SEVELAMER CARBONATE 0.8 GM PKT PO (17:35)
[2019-01-06] MEDS: TPN 1,000 ML IV (18:13)
[2019-01-06] MEDS: EPOETIN ALFA-EPBX (ESRD) 10,000 UNIT/ML VIAL SC (18:19)
[2019-01-06 19:17] LABS: HEMATOCRIT 24.2 % (42.0-52.0); HEMOGLOBIN 7.2 g/dl (14.0-18.0)
[2019-01-06] MEDS: MEROPENEM 500MG/50 ML (PMX) 50 ML IVPB (20:01)
[2019-01-07 01:17] LABS: HEMATOCRIT 23.5 % (42.0-52.0)
[2019-01-07 01:22] LABS: HEMOGLOBIN 6.9 g/dl (14.0-18.0)
[2019-01-07] MEDS: Insulin NOVOLOG SS MILD Algorithm (NPO/TPN/ENTERAL FEEDS) SC ×6 (01:58→21:07)
[2019-01-07] MEDS: ACCU-CHEK XX ×6 (01:59→21:00)
[2019-01-07] MEDS: DIPHENHYDRAMINE 50 MG INJ IM (04:43)
[2019-01-07] MEDS: HYDROCORTISONE 100 MG INJ IV ×3 (05:07→23:20)
[2019-01-07] MEDS: MIDODRINE 5 MG TAB PO ×3 (05:08→21:10)
[2019-01-07 06:18] LABS: ABNORMAL IP MESSAGE 1; HEMATOCRIT 21.4 % (42.0-52.0); MEAN CORPUSCULAR HEMOGLOBIN 29.9 pg (29.0-33.0); MEAN CORPUSCULAR HGB CONC 29.9 g/dl (32.0-37.0); MEAN PLATELET VOLUME 11.5 fl (7.4-10.4); NUCLEATED RED BLOOD CELLS% 3.1 /100WBC (0.0-0.0); PLATELET COUNT 74 10^3/UL (140-415); POSITIVE DIFF @See below; RED BLOOD COUNT 2.14 10^6/ul (4.70-6.10); RED CELL DISTRIBUTION WIDTH 19.6 % (11.5-14.5)
[2019-01-07 06:18] LABS: WHITE BLOOD COUNT 7.2 10^3/ul (4.8-10.8)
[2019-01-07 06:30] LABS: ADD MAN DIFF? YES; HEMOGLOBIN 6.4 g/dl (14.0-18.0)
[2019-01-07 06:41] LABS: ANION GAP 5 (5-13); BLOOD UREA NITROGEN 25 mg/dl (7-20); CALCIUM 8.6 mg/dl (8.4-10.2); CARBON DIOXIDE 26 mmol/L (21-31); CHLORIDE 108 mmol/L (97-110); CREATININE 3.25 mg/dl (0.61-1.24); Estimated GFR 20 mL/min (>60); GLUCOSE 185 mg/dl (70-220); MAGNESIUM 2.2 mg/dl (1.7-2.5); PHOSPHORUS 3.1 mg/dl (2.5-4.9); POTASSIUM 3.6 mmol/L (3.5-5.1); SODIUM 139 mmol/L (135-144)
[2019-01-07] MEDS: OCTREOTIDE 1 MG in DEXTROSE 5% 95 ML IV (07:57)
[2019-01-07 07:59] LABS: ANISOCYTOSIS 1+ (0-0); BAND NEUTROPHILS #M 0.2 10^3/ul (0.0-0.6); BAND NEUTROPHILS % (M) 3 % (0-4); BURR CELLS 3+ (0-0); ERYTHROBLAST% (NRBC) (M) 2 % (0-0); GIANT THROMBO% (M) 1 % (0-0); LYMPHOCYTES #M 0.3 10^3/ul (0.8-2.9); LYMPHOCYTES % (M) 5 % (15-51); MONOCYTE #M 0.2 10^3/ul (0.3-0.9); MONOCYTES % (M) 3 % (0-11); OVALOCYTES 1+ (0-0); PLATELET ESTIMATE DECREASED; POIKILOCYTOSIS 3+ (0-0); POLYCHROMASIA 1+ (0-0); SEG NEUT #M 6.4 10^3/ul (1.6-7.5); SEGMENTED NEUTROPHILS (M) % 89 % (39-77); SMUDGE%M 29 % (0-0)
[2019-01-07 08:02] LABS: AADO2 Arterial 42.9 mmHg (7.0-24.0); Allen Test ACCEPTAB; Arterial Base Excess -2.9 mmol/L (-3.0-3); Arterial Blood Gas Oxygen Sat 97.3 mmHG (95.0-98.0); Arterial COHb 0.7 % (0.0-3.0); Arterial HCO3 27.2 mmol/L (22.0-26.0); Arterial MetHb 0.6 % (0.0-1.5); Arterial pCO2 88.7 mmhg (35-45); MODE NASAL CANNULA; Site Right Radial
[2019-01-07] MEDS: SOD CHLORIDE 0.9% 250 ML IV* ×2 (08:10)
[2019-01-07] MEDS: DULOXETINE 30 MG CAP DR PO (08:51)
[2019-01-07] MEDS: FERROUS SULFATE (EC) 325 MG TAB PO ×2 (08:51→20:54)
[2019-01-07] MEDS: ATORVASTATIN 10 MG TAB PO (08:51)
[2019-01-07] MEDS: PREGABALIN 25 MG CAP PO ×2 (08:54→20:54)
[2019-01-07] MEDS: MULTIVIT/CA CARB/B CMPLX/FA TAB PO (08:54)
[2019-01-07] MEDS: PANTOPRAZOLE 40 MG INJ IV ×2 (09:12→20:58)
[2019-01-07] MEDS: HEPARIN 25000 UNITS/250 ML 250 ML IV (10:49)
[2019-01-07 11:50] LABS: AADO2 Arterial 72.8 mmHg (7.0-24.0); Allen Test ACCEPTAB; Arterial Blood Gas Oxygen Sat 95.1 mmHG (95.0-98.0); Arterial COHb 0.5 % (0.0-3.0); Arterial Fraction of Oxyhgb 94.1 % (93.0-99.0); Arterial HCO3 24.2 mmol/L (22.0-26.0); Arterial MetHb 0.5 % (0.0-1.5); Arterial pCO2 55.4 mmhg (35-45); Blood Gas IEPAP 20/5; MODE 562; Site Right Radial
[2019-01-07 12:16] LABS: HEMOGLOBIN 7.4 g/dl (14.0-18.0)
[2019-01-07] MEDS: SEVELAMER CARBONATE 0.8 GM PKT PO (17:35)
[2019-01-07 18:20] LABS: HEMATOCRIT 21.9 % (42.0-52.0)
[2019-01-07] MEDS: TPN 1,000 ML IV (18:21)
[2019-01-07 18:29] LABS: HEMOGLOBIN 6.8 g/dl (14.0-18.0)
[2019-01-07 18:41] LABS: PARTIAL THROMBOPLASTIN TIME 58.7 Sec (23.0-35.0)
[2019-01-07] MEDS: MEROPENEM 500MG/50 ML (PMX) 50 ML IVPB (20:58)
[2019-01-07 23:45] LABS: IMMEDIATE SPIN CROSSMATCH 1 3
[2019-01-08] MEDS: ACCU-CHEK XX ×6 (01:00→21:00)
[2019-01-08] MEDS: Insulin NOVOLOG SS MILD Algorithm (NPO/TPN/ENTERAL FEEDS) SC ×6 (01:00→21:14)
[2019-01-08] MEDS: DIPHENHYDRAMINE 50 MG INJ IM (02:58)
[2019-01-08] MEDS: OCTREOTIDE 1 MG in DEXTROSE 5% 95 ML IV (04:58)
[2019-01-08] MEDS: HYDROCORTISONE 100 MG INJ IV ×3 (04:58→21:12)
[2019-01-08 05:03] LABS: ADD MAN DIFF? NO
[2019-01-08] MEDS: MIDODRINE 5 MG TAB PO ×3 (05:05→21:12)
[2019-01-08 05:08] LABS: WHITE BLOOD COUNT 6.4 10^3/ul (4.8-10.8)
[2019-01-08 05:08] LABS: ABNORMAL IP MESSAGE 1; BASOPHILS % 0.2 % (0.0-2.0); EOSINOPHILS % 0.5 % (0.0-7.0); HEMATOCRIT 25.2 % (42.0-52.0); HEMOGLOBIN 7.8 g/dl (14.0-18.0); LYMPHOCYTES # 0.7 10^3/ul (0.8-2.9); LYMPHOCYTES % 11.1 % (15.0-51.0); MEAN CORPUSCULAR HEMOGLOBIN 29.3 pg (29.0-33.0); MEAN CORPUSCULAR VOLUME 94.7 fl (82.0-101.0); MEAN PLATELET VOLUME 11.7 fl (7.4-10.4); MONOCYTE # 0.5 10^3/ul (0.3-0.9); MONOCYTES % 7.5 % (0.0-11.0); NEUTROPHILS % 78.8 % (39.0-77.0); NUCLEATED RED BLOOD CELLS # 0.6 10^3/ul (0.0-0.0); NUCLEATED RED BLOOD CELLS% 8.8 /100WBC (0.0-0.0); PLATELET COUNT 91 10^3/UL (140-415); POSITIVE DIFF @See below; RED BLOOD COUNT 2.66 10^6/ul (4.70-6.10); RED CELL DISTRIBUTION WIDTH 17.8 % (11.5-14.5)
[2019-01-08 05:28] LABS: PARTIAL THROMBOPLASTIN TIME 44.6 Sec (23.0-35.0)
[2019-01-08 05:32] LABS: ANION GAP 7 (5-13); BLOOD UREA NITROGEN 39 mg/dl (7-20); CALCIUM 9.3 mg/dl (8.4-10.2); CARBON DIOXIDE 23 mmol/L (21-31); CHLORIDE 107 mmol/L (97-110); CREATININE 4.35 mg/dl (0.61-1.24); Estimated GFR 14 mL/min (>60); GLUCOSE 149 mg/dl (70-220); MAGNESIUM 2.3 mg/dl (1.7-2.5); PHOSPHORUS 1.5 mg/dl (2.5-4.9); POTASSIUM 3.8 mmol/L (3.5-5.1); SODIUM 137 mmol/L (135-144)
[2019-01-08 05:43] LABS: AADO2 Arterial 52.3 mmHg (7.0-24.0); Arterial Base Excess -4.1 mmol/L (-3.0-3); Arterial Blood Gas Oxygen Sat 97.2 mmHG (95.0-98.0); Arterial COHb 0.2 % (0.0-3.0); Arterial Fraction of Oxyhgb 96.6 % (93.0-99.0); Arterial HCO3 22.3 mmol/L (22.0-26.0); Arterial MetHb 0.4 % (0.0-1.5); Arterial pCO2 46.9 mmhg (35-45); MODE NASAL CANNULA; Site Right Brachial
[2019-01-08] MEDS: FERROUS SULFATE (EC) 325 MG TAB PO ×2 (09:00→21:12)
[2019-01-08] MEDS: ATORVASTATIN 10 MG TAB PO (09:00)
[2019-01-08] MEDS: PREGABALIN 25 MG CAP PO ×2 (09:00→21:12)
[2019-01-08] MEDS: MULTIVIT/CA CARB/B CMPLX/FA TAB PO (09:00)
[2019-01-08] MEDS: DULOXETINE 30 MG CAP DR PO (09:00)
[2019-01-08] MEDS: PANTOPRAZOLE 40 MG INJ IV ×2 (09:37→21:12)
[2019-01-08] MEDS: SODIUM PHOSPHATE 40 MEQ in SOD CHLORIDE 0.9% 250 ML IVPB (10:51)
[2019-01-08] MEDS: SOD CHLORIDE 0.9% IVPB (12:12)
[2019-01-08] MEDS: DESMOPRESSIN IVPB (12:12)
[2019-01-08] MEDS: TPN 1,000 ML IV (16:41)
[2019-01-08 17:45] LABS: PARTIAL THROMBOPLASTIN TIME 47.1 Sec (23.0-35.0)
[2019-01-08] MEDS: HEPARIN 25000 UNITS/250 ML 250 ML IV (18:12)
[2019-01-08] MEDS: MEROPENEM 500MG/50 ML (PMX) 50 ML IVPB (21:12)
[2019-01-09] MEDS: OCTREOTIDE 1 MG in DEXTROSE 5% 95 ML IV ×2 (00:52→17:23)
[2019-01-09] MEDS: Insulin NOVOLOG SS MILD Algorithm (NPO/TPN/ENTERAL FEEDS) SC ×6 (00:54→21:01)
[2019-01-09] MEDS: ACCU-CHEK XX ×6 (00:55→21:00)
[2019-01-09 05:06] LABS: ADD MAN DIFF? NO
[2019-01-09] MEDS: HYDROCORTISONE 100 MG INJ IV ×3 (05:07→22:47)
[2019-01-09] MEDS: MIDODRINE 5 MG TAB PO ×3 (05:12→22:00)
[2019-01-09 05:15] LABS: ABNORMAL IP MESSAGE 1; BASOPHILS % 0.2 % (0.0-2.0); EOSINOPHILS # 0.1 10^3/ul (0.0-0.5); EOSINOPHILS % 1.2 % (0.0-7.0); HEMATOCRIT 25.6 % (42.0-52.0); HEMOGLOBIN 7.7 g/dl (14.0-18.0); LYMPHOCYTES # 0.5 10^3/ul (0.8-2.9); LYMPHOCYTES % 8.7 % (15.0-51.0); MEAN CORPUSCULAR HEMOGLOBIN 29.6 pg (29.0-33.0); MEAN CORPUSCULAR HGB CONC 30.1 g/dl (32.0-37.0); MEAN CORPUSCULAR VOLUME 98.5 fl (82.0-101.0); MEAN PLATELET VOLUME 11.2 fl (7.4-10.4); MONOCYTE # 0.3 10^3/ul (0.3-0.9); MONOCYTES % 6.4 % (0.0-11.0); NEUTROPHIL # 4.2 10^3/ul (1.6-7.5); NEUTROPHILS % 81.9 % (39.0-77.0); NUCLEATED RED BLOOD CELLS # 0.1 10^3/ul (0.0-0.0); NUCLEATED RED BLOOD CELLS% 1.9 /100WBC (0.0-0.0); PLATELET COUNT 88 10^3/UL (140-415); POSITIVE DIFF @See below; RED CELL DISTRIBUTION WIDTH 18.6 % (11.5-14.5)
[2019-01-09 05:15] LABS: WHITE BLOOD COUNT 5.2 10^3/ul (4.8-10.8)
[2019-01-09 05:31] LABS: AADO2 Arterial 13.7 mmHg (7.0-24.0); Arterial Base Excess -2.5 mmol/L (-3.0-3); Arterial Blood Gas Oxygen Sat 98.5 mmHG (95.0-98.0); Arterial COHb 0.8 % (0.0-3.0); Arterial Fraction of Oxyhgb 97.3 % (93.0-99.0); Arterial HCO3 24.9 mmol/L (22.0-26.0); Arterial MetHb 0.4 % (0.0-1.5); Arterial pCO2 57.5 mmhg (35-45); MODE NASAL CANNULA; Site Right Brachial
[2019-01-09 05:32] LABS: PARTIAL THROMBOPLASTIN TIME 54.3 Sec (23.0-35.0)
[2019-01-09 05:56] LABS: ANION GAP 6 (5-13); BLOOD UREA NITROGEN 28 mg/dl (7-20); CALCIUM 8.3 mg/dl (8.4-10.2); CARBON DIOXIDE 27 mmol/L (21-31); CHLORIDE 103 mmol/L (97-110); CREATININE 3.26 mg/dl (0.61-1.24); Estimated GFR 19 mL/min (>60); GLUCOSE 167 mg/dl (70-220); PHOSPHORUS 2.7 mg/dl (2.5-4.9); POTASSIUM 3.9 mmol/L (3.5-5.1); SODIUM 136 mmol/L (135-144)
[2019-01-09 06:22] LABS: PREALBUMIN 13.9 mg/dl (17.6-36.0)
[2019-01-09] MEDS: FERROUS SULFATE (EC) 325 MG TAB PO ×2 (09:00→20:49)
[2019-01-09] MEDS: PREGABALIN 25 MG CAP PO ×2 (09:00→20:50)
[2019-01-09] MEDS: MULTIVIT/CA CARB/B CMPLX/FA TAB PO (09:00)
[2019-01-09] MEDS: DULOXETINE 30 MG CAP DR PO (09:00)
[2019-01-09] MEDS: ATORVASTATIN 10 MG TAB PO (09:00)
[2019-01-09] MEDS: PANTOPRAZOLE 40 MG INJ IV ×2 (09:25→20:49)
[2019-01-09] MEDS ORDERED: LIDOCAINE 1% (MDV) 20 ML INJ (11:28)
[2019-01-09] MEDS ORDERED: HEPARIN 1000 UNITS/NS (A-LINE) 1,000 ML (11:28)
[2019-01-09] MEDS ORDERED: FENTAnyl 50 MCG/ML VIAL (11:30)
[2019-01-09] MEDS ORDERED: IOHEXOL 350MG/ML 50 ML BTL ×6 (11:46→13:29)
[2019-01-09] MEDS ORDERED: IODIXANOL LOCM 100 ML BTL (13:29)
[2019-01-09] MEDS: FAT EMULSION 20% 250 ML IV (16:49)
[2019-01-09] MEDS: TPN 1,000 ML IV (16:50)
[2019-01-09] MEDS: EPOETIN ALFA-EPBX (ESRD) 10,000 UNIT/ML VIAL SC (17:17)
[2019-01-09 19:22] LABS: HEMOGLOBIN 8.9 g/dl (14.0-18.0)
[2019-01-09] MEDS: MEROPENEM 500MG/50 ML (PMX) 50 ML IVPB (20:49)
[2019-01-10] MEDS: ACCU-CHEK XX ×6 (01:00→20:48)
[2019-01-10] MEDS: Insulin NOVOLOG SS MILD Algorithm (NPO/TPN/ENTERAL FEEDS) SC ×6 (01:12→20:45)
[2019-01-10] MEDS: MIDODRINE 5 MG TAB PO ×3 (05:12→21:40)
[2019-01-10] MEDS: HYDROCORTISONE 100 MG INJ IV ×3 (05:22→21:40)
[2019-01-10 05:34] LABS: ADD MAN DIFF? NO
[2019-01-10 05:36] LABS: ABNORMAL IP MESSAGE 1; BASOPHILS % 0.2 % (0.0-2.0); EOSINOPHILS # 0.1 10^3/ul (0.0-0.5); EOSINOPHILS % 1.9 % (0.0-7.0); HEMATOCRIT 27.2 % (42.0-52.0); HEMOGLOBIN 8.5 g/dl (14.0-18.0); LYMPHOCYTES # 0.5 10^3/ul (0.8-2.9); LYMPHOCYTES % 11.3 % (15.0-51.0); MEAN CORPUSCULAR HEMOGLOBIN 30.8 pg (29.0-33.0); MEAN CORPUSCULAR HGB CONC 31.3 g/dl (32.0-37.0); MEAN CORPUSCULAR VOLUME 98.6 fl (82.0-101.0); MEAN PLATELET VOLUME 9.6 fl (7.4-10.4); MONOCYTE # 0.4 10^3/ul (0.3-0.9); MONOCYTES % 9.2 % (0.0-11.0); NEUTROPHIL # 3.6 10^3/ul (1.6-7.5); NEUTROPHILS % 75.5 % (39.0-77.0); NUCLEATED RED BLOOD CELLS # 0.1 10^3/ul (0.0-0.0); NUCLEATED RED BLOOD CELLS% 1.3 /100WBC (0.0-0.0); PLATELET COUNT 73 10^3/UL (140-415); POSITIVE DIFF @See below; RED BLOOD COUNT 2.76 10^6/ul (4.70-6.10); RED CELL DISTRIBUTION WIDTH 18.9 % (11.5-14.5)
[2019-01-10 05:36] LABS: WHITE BLOOD COUNT 4.8 10^3/ul (4.8-10.8)
[2019-01-10 06:24] LABS: ANION GAP 4 (5-13); BLOOD UREA NITROGEN 38 mg/dl (7-20); CALCIUM 8.6 mg/dl (8.4-10.2); CARBON DIOXIDE 26 mmol/L (21-31); CHLORIDE 103 mmol/L (97-110); CREATININE 4.25 mg/dl (0.61-1.24); Estimated GFR 14 mL/min (>60); GLUCOSE 118 mg/dl (70-220); PHOSPHORUS 3.2 mg/dl (2.5-4.9); POTASSIUM 4.2 mmol/L (3.5-5.1); SODIUM 133 mmol/L (135-144)
[2019-01-10 07:16] LABS: TRIGLYCERIDES 105 mg/dl (0-149)
[2019-01-10] MEDS: PREGABALIN 25 MG CAP PO ×2 (09:00→20:48)
[2019-01-10] MEDS: ATORVASTATIN 10 MG TAB PO (09:00)
[2019-01-10] MEDS: FERROUS SULFATE (EC) 325 MG TAB PO ×2 (09:00→20:48)
[2019-01-10] MEDS: DULOXETINE 30 MG CAP DR PO (09:00)
[2019-01-10] MEDS: MULTIVIT/CA CARB/B CMPLX/FA TAB PO (09:00)
[2019-01-10] MEDS: HEPARIN 25000 UNITS/250 ML 250 ML IV (09:09)
[2019-01-10] MEDS: PANTOPRAZOLE 40 MG INJ IV ×2 (09:27→20:48)
[2019-01-10 12:16] LABS: HEMATOCRIT 28.3 % (42.0-52.0); HEMOGLOBIN 8.7 g/dl (14.0-18.0)
[2019-01-10 12:47] LABS: PARTIAL THROMBOPLASTIN TIME 50.4 Sec (23.0-35.0)
[2019-01-10] MEDS: TPN 1,000 ML IV (15:15)
[2019-01-10] MEDS: OCTREOTIDE 1 MG in DEXTROSE 5% 95 ML IV (15:30)
[2019-01-10 18:02] LABS: ADD MAN DIFF? NO
[2019-01-10 18:06] LABS: WHITE BLOOD COUNT 4.3 10^3/ul (4.8-10.8)
[2019-01-10 18:06] LABS: ABNORMAL IP MESSAGE 1; BASOPHILS % 0.2 % (0.0-2.0); EOSINOPHILS # 0.1 10^3/ul (0.0-0.5); EOSINOPHILS % 1.2 % (0.0-7.0); HEMATOCRIT 27.4 % (42.0-52.0); HEMOGLOBIN 8.5 g/dl (14.0-18.0); LYMPHOCYTES # 0.4 10^3/ul (0.8-2.9); LYMPHOCYTES % 8.6 % (15.0-51.0); MEAN CORPUSCULAR HEMOGLOBIN 30.5 pg (29.0-33.0); MEAN CORPUSCULAR VOLUME 98.2 fl (82.0-101.0); MEAN PLATELET VOLUME 9.9 fl (7.4-10.4); MONOCYTE # 0.4 10^3/ul (0.3-0.9); MONOCYTES % 8.4 % (0.0-11.0); NEUTROPHIL # 3.4 10^3/ul (1.6-7.5); NEUTROPHILS % 78.8 % (39.0-77.0); NUCLEATED RED BLOOD CELLS% 0.9 /100WBC (0.0-0.0); PLATELET COUNT 67 10^3/UL (140-415); POSITIVE DIFF @See below; RED BLOOD COUNT 2.79 10^6/ul (4.70-6.10)
[2019-01-10 18:24] LABS: INR 1.15; PROTIME 14.8 Sec (11.9-14.9); PT RATIO 1.2
[2019-01-10 18:25] LABS: PARTIAL THROMBOPLASTIN TIME 48.1 Sec (23.0-35.0)
[2019-01-10] MEDS: SOD CHLORIDE 0.9% IVPB (18:30)
[2019-01-10] MEDS: DESMOPRESSIN IVPB (18:30)
[2019-01-11] MEDS: Insulin NOVOLOG SS MILD Algorithm (NPO/TPN/ENTERAL FEEDS) SC ×2 (00:26→05:25)
[2019-01-11] MEDS: ACCU-CHEK XX ×6 (00:26→20:32)
[2019-01-11 01:28] LABS: HEMATOCRIT 27.6 % (42.0-52.0); HEMOGLOBIN 8.4 g/dl (14.0-18.0)
[2019-01-11 01:48] LABS: PARTIAL THROMBOPLASTIN TIME 42.1 Sec (23.0-35.0)
[2019-01-11] MEDS: HEPARIN 1000 UNITS/ML 10 ML INJ IV ×2 (02:32→18:12)
[2019-01-11] MEDS: HEPARIN 25000 UNITS/250 ML 250 ML IV (02:32)
[2019-01-11 05:23] LABS: ADD MAN DIFF? NO
[2019-01-11] MEDS: HYDROCORTISONE 100 MG INJ IV ×3 (05:23→22:09)
[2019-01-11] MEDS: MIDODRINE 5 MG TAB PO ×3 (05:26→22:00)
[2019-01-11 05:35] LABS: ABNORMAL IP MESSAGE 1; EOSINOPHILS % 0.7 % (0.0-7.0); HEMATOCRIT 27.1 % (42.0-52.0); HEMOGLOBIN 8.2 g/dl (14.0-18.0); LYMPHOCYTES # 0.3 10^3/ul (0.8-2.9); LYMPHOCYTES % 7.3 % (15.0-51.0); MEAN CORPUSCULAR HGB CONC 30.3 g/dl (32.0-37.0); MEAN CORPUSCULAR VOLUME 99.3 fl (82.0-101.0); MEAN PLATELET VOLUME 11.1 fl (7.4-10.4); MONOCYTE # 0.4 10^3/ul (0.3-0.9); MONOCYTES % 9.4 % (0.0-11.0); NEUTROPHIL # 3.4 10^3/ul (1.6-7.5); NEUTROPHILS % 78.6 % (39.0-77.0); NUCLEATED RED BLOOD CELLS # 0.1 10^3/ul (0.0-0.0); NUCLEATED RED BLOOD CELLS% 1.9 /100WBC (0.0-0.0); PLATELET COUNT 77 10^3/UL (140-415); POSITIVE DIFF @See below; RED BLOOD COUNT 2.73 10^6/ul (4.70-6.10)
[2019-01-11 05:35] LABS: WHITE BLOOD COUNT 4.3 10^3/ul (4.8-10.8)
[2019-01-11 06:02] LABS: ANION GAP 6 (5-13); BLOOD UREA NITROGEN 29 mg/dl (7-20); CALCIUM 8.6 mg/dl (8.4-10.2); CARBON DIOXIDE 28 mmol/L (21-31); CHLORIDE 101 mmol/L (97-110); CREATININE 3.31 mg/dl (0.61-1.24); Estimated GFR 19 mL/min (>60); GLUCOSE 188 mg/dl (70-220); MAGNESIUM 1.9 mg/dl (1.7-2.5); PHOSPHORUS 2.7 mg/dl (2.5-4.9); POTASSIUM 4.1 mmol/L (3.5-5.1); SODIUM 135 mmol/L (135-144)
[2019-01-11] MEDS: ATORVASTATIN 10 MG TAB PO (09:00)
[2019-01-11] MEDS: MULTIVIT/CA CARB/B CMPLX/FA TAB PO (09:00)
[2019-01-11] MEDS: PREGABALIN 25 MG CAP PO ×2 (09:00→20:32)
[2019-01-11] MEDS: FERROUS SULFATE (EC) 325 MG TAB PO ×2 (09:00→20:32)
[2019-01-11] MEDS: DULOXETINE 30 MG CAP DR PO (09:00)
[2019-01-11 09:11] LABS: PARTIAL THROMBOPLASTIN TIME 128.3 Sec (23.0-35.0)
[2019-01-11] MEDS: INSULIN GLARGINE [LANTus] (100 UNITS/ML) SYG SC (09:55)
[2019-01-11] MEDS: INSULIN ASPART [NOVOLOG] 3 ML PEN SC ×4 (10:06→20:31)
[2019-01-11 10:16] LABS: AADO2 Arterial 89.7 mmHg (7.0-24.0); Allen Test ACCEPTAB; Arterial Base Excess -3.3 mmol/L (-3.0-3); Arterial Blood Gas Oxygen Sat 86.4 mmHG (95.0-98.0); Arterial COHb 0.5 % (0.0-3.0); Arterial Fraction of Oxyhgb 85.6 % (93.0-99.0); Arterial HCO3 24.8 mmol/L (22.0-26.0); Arterial MetHb 0.4 % (0.0-1.5); Arterial pCO2 60.5 mmhg (35-45); Blood Gas IEPAP 50/5; Blood Gas PS 15; MODE MASK - BIPAP; Site Right Radial
[2019-01-11] MEDS: PANTOPRAZOLE 40 MG INJ IV ×2 (10:33→20:36)
[2019-01-11] MEDS: TPN 1,000 ML IV (10:33)
[2019-01-11] MEDS: OCTREOTIDE 1 MG in DEXTROSE 5% 95 ML IV (10:50)
[2019-01-11 12:27] LABS: HEMATOCRIT 27.9 % (42.0-52.0); HEMOGLOBIN 8.4 g/dl (14.0-18.0)
[2019-01-11 14:01] LABS: Allen Test ACCEPTAB; Arterial Base Excess -2.7 mmol/L (-3.0-3); Arterial Blood Gas Oxygen Sat 97.9 mmHG (95.0-98.0); Arterial COHb 0.5 % (0.0-3.0); Arterial Fraction of Oxyhgb 96.9 % (93.0-99.0); Arterial HCO3 26.9 mmol/L (22.0-26.0); Arterial MetHb 0.5 % (0.0-1.5); Arterial pCO2 77.8 mmhg (35-45); Blood Gas IEPAP 20/5; Blood Gas PS 15; MODE MASK - BIPAP; Site Right Radial
[2019-01-11] MEDS: EPOETIN ALFA-EPBX (ESRD) 10,000 UNIT/ML VIAL SC (17:00)
[2019-01-11 17:54] LABS: PARTIAL THROMBOPLASTIN TIME 26.8 Sec (23.0-35.0)
[2019-01-11 21:01] LABS: AADO2 Arterial 162.7 mmHg (7.0-24.0); Allen Test ACCEPTAB; Arterial Base Excess -3.2 mmol/L (-3.0-3); Arterial COHb 0.4 % (0.0-3.0); Arterial Fraction of Oxyhgb 97.1 % (93.0-99.0); Arterial HCO3 24.8 mmol/L (22.0-26.0); Arterial MetHb 0.5 % (0.0-1.5); Blood Gas IEPAP 18/8; Blood Gas PS 10; MODE MASK - BIPAP; Site Right Radial
[2019-01-12] MEDS: ACCU-CHEK XX ×6 (01:04→20:24)
[2019-01-12] MEDS: INSULIN ASPART [NOVOLOG] 3 ML PEN SC ×6 (01:19→20:29)
[2019-01-12 01:26] LABS: PARTIAL THROMBOPLASTIN TIME 91.2 Sec (23.0-35.0)
[2019-01-12] MEDS: DIPHENHYDRAMINE 50 MG INJ IM (01:38)
[2019-01-12] MEDS: TPN 1,000 ML IV (03:34)
[2019-01-12] MEDS: HEPARIN 25000 UNITS/250 ML 250 ML IV (03:37)
[2019-01-12 05:26] LABS: ANION GAP 5 (5-13); BLOOD UREA NITROGEN 43 mg/dl (7-20); CALCIUM 8.9 mg/dl (8.4-10.2); CARBON DIOXIDE 27 mmol/L (21-31); CHLORIDE 102 mmol/L (97-110); CREATININE 4.28 mg/dl (0.61-1.24); Estimated GFR 14 mL/min (>60); GLUCOSE 140 mg/dl (70-220); MAGNESIUM 1.9 mg/dl (1.7-2.5); PHOSPHORUS 3.9 mg/dl (2.5-4.9); POTASSIUM 4.5 mmol/L (3.5-5.1); SODIUM 134 mmol/L (135-144)
[2019-01-12] MEDS: MIDODRINE 5 MG TAB PO ×3 (05:41→21:01)
[2019-01-12] MEDS: HYDROCORTISONE 100 MG INJ IV ×3 (05:45→21:04)
[2019-01-12 08:03] LABS: WHITE BLOOD COUNT 5.6 10^3/ul (4.8-10.8)
[2019-01-12 08:03] LABS: ABNORMAL IP MESSAGE 1; HEMATOCRIT 27.1 % (42.0-52.0); HEMOGLOBIN 8.1 g/dl (14.0-18.0); MEAN CORPUSCULAR HEMOGLOBIN 30.6 pg (29.0-33.0); MEAN CORPUSCULAR HGB CONC 29.9 g/dl (32.0-37.0); MEAN CORPUSCULAR VOLUME 102.3 fl (82.0-101.0); MEAN PLATELET VOLUME 10.7 fl (7.4-10.4); NUCLEATED RED BLOOD CELLS% 2.2 /100WBC (0.0-0.0); PLATELET COUNT 91 10^3/UL (140-415); POSITIVE DIFF @See below; RED BLOOD COUNT 2.65 10^6/ul (4.70-6.10); RED CELL DISTRIBUTION WIDTH 19.1 % (11.5-14.5)
[2019-01-12 08:04] LABS: ADD MAN DIFF? YES
[2019-01-12] MEDS: INSULIN GLARGINE [LANTus] (100 UNITS/ML) SYG SC (08:29)
[2019-01-12] MEDS: MULTIVIT/CA CARB/B CMPLX/FA TAB PO (09:00)
[2019-01-12] MEDS: FERROUS SULFATE (EC) 325 MG TAB PO ×2 (09:00→20:24)
[2019-01-12] MEDS: DULOXETINE 30 MG CAP DR PO (09:00)
[2019-01-12] MEDS: ATORVASTATIN 10 MG TAB PO (09:00)
[2019-01-12] MEDS: PREGABALIN 25 MG CAP PO ×2 (09:00→20:24)
[2019-01-12] MEDS: PANTOPRAZOLE 40 MG INJ IV ×2 (09:09→20:24)
[2019-01-12 09:15] LABS: ANISOCYTOSIS 2+ (0-0); BAND NEUTROPHILS #M 0.2 10^3/ul (0.0-0.6); BAND NEUTROPHILS % (M) 4 % (0-4); BURR CELLS 2+ (0-0); EOSINOPHILS % (M) 2 % (0-7); ERYTHROBLAST% (NRBC) (M) 3 % (0-0); LYMPHOCYTES #M 0.4 10^3/ul (0.8-2.9); LYMPHOCYTES % (M) 8 % (15-51); METAMYELOCYTES #M 0.1 10^3/ul (0.0-0.0); METAMYELOCYTES %M 2 % (0-0); MICROCYTOSIS 1+ (0-0); MONOCYTE #M 0.1 10^3/ul (0.3-0.9); MONOCYTES % (M) 3 % (0-11); MYELOCYTES % (M) 1 % (0-0); PLATELET ESTIMATE DECREASED; POIKILOCYTOSIS 1+ (0-0); POLYCHROMASIA 3+ (0-0); SEG NEUT #M 4.5 10^3/ul (1.6-7.5); SEGMENTED NEUTROPHILS (M) % 80 % (39-77); SMUDGE%M 2 % (0-0)
[2019-01-12 09:26] LABS: PARTIAL THROMBOPLASTIN TIME 104.6 Sec (23.0-35.0)
[2019-01-12 14:35] LABS: AADO2 Arterial 164.4 mmHg (7.0-24.0); Allen Test ACCEPTAB; Arterial Blood Gas Oxygen Sat 97.7 mmHG (95.0-98.0); Arterial COHb 0.4 % (0.0-3.0); Arterial Fraction of Oxyhgb 96.7 % (93.0-99.0); Arterial HCO3 29.7 mmol/L (22.0-26.0); Arterial MetHb 0.6 % (0.0-1.5); Arterial pCO2 74.8 mmhg (35-45); Blood Gas IEPAP 18/8; Blood Gas PS 10; MODE MASK - BIPAP; Site Right Radial
[2019-01-12 17:13] LABS: PARTIAL THROMBOPLASTIN TIME 80.9 Sec (23.0-35.0)
[2019-01-12] MEDS: FAT EMULSION 20% 250 ML IV (17:55)
[2019-01-12] MEDS: EPOETIN ALFA-EPBX (ESRD) 10,000 UNIT/ML VIAL SC (20:24)
[2019-01-13] MEDS: TPN 1,000 ML IV ×2 (00:36→20:03)
[2019-01-13] MEDS: NORepinephrine 8MG/250 ML (PMX 250 ML IV (00:45)
[2019-01-13] MEDS: ACCU-CHEK XX ×6 (00:48→20:36)
[2019-01-13] MEDS: INSULIN ASPART [NOVOLOG] 3 ML PEN SC ×6 (00:50→20:36)
[2019-01-13 04:54] LABS: ADD MAN DIFF? NO
[2019-01-13 04:57] LABS: ABNORMAL IP MESSAGE 1; EOSINOPHILS % 0.6 % (0.0-7.0); HEMATOCRIT 24.9 % (42.0-52.0); HEMOGLOBIN 7.2 g/dl (14.0-18.0); LYMPHOCYTES # 0.4 10^3/ul (0.8-2.9); LYMPHOCYTES % 7.3 % (15.0-51.0); MEAN CORPUSCULAR HEMOGLOBIN 29.6 pg (29.0-33.0); MEAN CORPUSCULAR HGB CONC 28.9 g/dl (32.0-37.0); MEAN CORPUSCULAR VOLUME 102.5 fl (82.0-101.0); MEAN PLATELET VOLUME 11.7 fl (7.4-10.4); MONOCYTE # 0.5 10^3/ul (0.3-0.9); MONOCYTES % 9.2 % (0.0-11.0); NEUTROPHIL # 4.2 10^3/ul (1.6-7.5); NEUTROPHILS % 79.6 % (39.0-77.0); NUCLEATED RED BLOOD CELLS # 0.1 10^3/ul (0.0-0.0); NUCLEATED RED BLOOD CELLS% 1.7 /100WBC (0.0-0.0); PLATELET COUNT 96 10^3/UL (140-415); POSITIVE DIFF @See below; RED BLOOD COUNT 2.43 10^6/ul (4.70-6.10); RED CELL DISTRIBUTION WIDTH 19.6 % (11.5-14.5)
[2019-01-13 04:57] LABS: WHITE BLOOD COUNT 5.2 10^3/ul (4.8-10.8)
[2019-01-13 05:23] LABS: ANION GAP 3 (5-13); BLOOD UREA NITROGEN 33 mg/dl (7-20); CALCIUM 8.6 mg/dl (8.4-10.2); CARBON DIOXIDE 30 mmol/L (21-31); CHLORIDE 103 mmol/L (97-110); CREATININE 3.34 mg/dl (0.61-1.24); Estimated GFR 19 mL/min (>60); GLUCOSE 155 mg/dl (70-220); MAGNESIUM 1.8 mg/dl (1.7-2.5); PHOSPHORUS 2.7 mg/dl (2.5-4.9); POTASSIUM 4.2 mmol/L (3.5-5.1); SODIUM 136 mmol/L (135-144)
[2019-01-13] MEDS: MIDODRINE 5 MG TAB PO ×4 (05:28→21:02)
[2019-01-13] MEDS: HYDROCORTISONE 100 MG INJ IV ×3 (05:31→21:02)
[2019-01-13] MEDS: HEPARIN 25000 UNITS/250 ML 250 ML IV (07:36)
[2019-01-13 08:10] LABS: AADO2 Arterial 114.7 mmHg (7.0-24.0); Allen Test ACCEPTAB; Arterial Base Excess -1.5 mmol/L (-3.0-3); Arterial Blood Gas Oxygen Sat 97.4 mmHG (95.0-98.0); Arterial COHb 0.9 % (0.0-3.0); Arterial Fraction of Oxyhgb 96.1 % (93.0-99.0); Arterial HCO3 25.9 mmol/L (22.0-26.0); Arterial MetHb 0.4 % (0.0-1.5); Arterial pCO2 58.8 mmhg (35-45); Blood Gas IEPAP 18/8; MODE MASK - BIPAP; Site Right Brachial
[2019-01-13] MEDS: PANTOPRAZOLE 40 MG INJ IV ×2 (08:48→21:02)
[2019-01-13] MEDS: INSULIN GLARGINE [LANTus] (100 UNITS/ML) SYG SC (08:51)
[2019-01-13] MEDS: DULOXETINE 30 MG CAP DR PO (09:00)
[2019-01-13] MEDS: MULTIVIT/CA CARB/B CMPLX/FA TAB PO (09:01)
[2019-01-13] MEDS: ATORVASTATIN 10 MG TAB PO (09:02)
[2019-01-13] MEDS: PREGABALIN 25 MG CAP PO ×2 (09:02→20:33)
[2019-01-13] MEDS: FERROUS SULFATE (EC) 325 MG TAB PO ×2 (09:02→20:33)
[2019-01-13 09:12] LABS: PARTIAL THROMBOPLASTIN TIME 59.3 Sec (23.0-35.0)
[2019-01-13] MEDS: DESMOPRESSIN IVPB (10:09)
[2019-01-13] MEDS: SOD CHLORIDE 0.9% IVPB (10:09)
[2019-01-13 15:42] LABS: PARTIAL THROMBOPLASTIN TIME 58.4 Sec (23.0-35.0)
[2019-01-13] MEDS: EPOETIN ALFA-EPBX (ESRD) 10,000 UNIT/ML VIAL SC (23:10)
[2019-01-14] MEDS: INSULIN ASPART [NOVOLOG] 3 ML PEN SC ×6 (00:54→21:37)
[2019-01-14] MEDS: ACCU-CHEK XX ×6 (00:54→21:00)
[2019-01-14 03:47] LABS: ADD MAN DIFF? NO
[2019-01-14 04:12] LABS: PARTIAL THROMBOPLASTIN TIME 55.9 Sec (23.0-35.0)
[2019-01-14 04:16] LABS: WHITE BLOOD COUNT 5.4 10^3/ul (4.8-10.8)
[2019-01-14 04:16] LABS: ABNORMAL IP MESSAGE 1; EOSINOPHILS # 0.1 10^3/ul (0.0-0.5); HEMOGLOBIN 7.6 g/dl (14.0-18.0); LYMPHOCYTES # 0.4 10^3/ul (0.8-2.9); MEAN CORPUSCULAR HEMOGLOBIN 29.9 pg (29.0-33.0); MEAN CORPUSCULAR HGB CONC 30.4 g/dl (32.0-37.0); MEAN CORPUSCULAR VOLUME 98.4 fl (82.0-101.0); MEAN PLATELET VOLUME 11.4 fl (7.4-10.4); MONOCYTE # 0.4 10^3/ul (0.3-0.9); MONOCYTES % 7.1 % (0.0-11.0); NEUTROPHIL # 4.4 10^3/ul (1.6-7.5); NUCLEATED RED BLOOD CELLS # 0.1 10^3/ul (0.0-0.0); NUCLEATED RED BLOOD CELLS% 2.4 /100WBC (0.0-0.0); PLATELET COUNT 71 10^3/UL (140-415); POSITIVE DIFF @See below; RED BLOOD COUNT 2.54 10^6/ul (4.70-6.10); RED CELL DISTRIBUTION WIDTH 21.2 % (11.5-14.5)
[2019-01-14 04:18] LABS: ANION GAP 2 (5-13); BLOOD UREA NITROGEN 25 mg/dl (7-20); CALCIUM 9.1 mg/dl (8.4-10.2); CARBON DIOXIDE 30 mmol/L (21-31); CHLORIDE 103 mmol/L (97-110); CREATININE 2.38 mg/dl (0.61-1.24); Estimated GFR 28 mL/min (>60); GLUCOSE 149 mg/dl (70-220); MAGNESIUM 1.7 mg/dl (1.7-2.5); PHOSPHORUS 1.4 mg/dl (2.5-4.9); POTASSIUM 3.7 mmol/L (3.5-5.1); SODIUM 135 mmol/L (135-144)
[2019-01-14] MEDS: HYDROCORTISONE 100 MG INJ IV ×3 (05:20→21:21)
[2019-01-14] MEDS: MIDODRINE 5 MG TAB PO ×3 (05:20→21:27)
[2019-01-14] MEDS: HEPARIN 25000 UNITS/250 ML 250 ML IV (05:52)
[2019-01-14 08:24] LABS: AADO2 Arterial 91.6 mmHg (7.0-24.0); Allen Test ACCEPTAB; Arterial Base Excess -0.1 mmol/L (-3.0-3); Arterial Blood Gas Oxygen Sat 94.3 mmHG (95.0-98.0); Arterial COHb 1.6 % (0.0-3.0); Arterial Fraction of Oxyhgb 92.3 % (93.0-99.0); Arterial HCO3 25.5 mmol/L (22.0-26.0); Arterial MetHb 0.5 % (0.0-1.5); Arterial pCO2 46.3 mmhg (35-45); Blood Gas IEPAP 18/8; Blood Gas PS 10; MODE MASK - BIPAP; Site Right Radial
[2019-01-14] MEDS: INSULIN GLARGINE [LANTus] (100 UNITS/ML) SYG SC (08:37)
[2019-01-14] MEDS: ATORVASTATIN 10 MG TAB PO (08:44)
[2019-01-14] MEDS: PREGABALIN 25 MG CAP PO ×2 (08:44→21:23)
[2019-01-14] MEDS: DULOXETINE 30 MG CAP DR PO (08:44)
[2019-01-14] MEDS: MULTIVIT/CA CARB/B CMPLX/FA TAB PO (08:44)
[2019-01-14] MEDS: PANTOPRAZOLE 40 MG INJ IV ×2 (08:45→21:21)
[2019-01-14] MEDS: FERROUS SULFATE (EC) 325 MG TAB PO ×2 (08:45→21:28)
[2019-01-14] MEDS ORDERED: VANCOMYCIN IV PER PHARMACY XX (09:30)
[2019-01-14] MEDS: CEFEPIME 1GM/50 ML (PMX) 50 ML IVPB (09:34)
[2019-01-14 11:15] LABS: PARTIAL THROMBOPLASTIN TIME 81.1 Sec (23.0-35.0)
[2019-01-14] MEDS: VANCOMYCIN HCL 2 GM in SOD CHLORIDE 0.9% 500 ML IVPB (11:28)
[2019-01-14] MEDS: TPN 1,000 ML IV (16:24)
[2019-01-14 19:28] LABS: PARTIAL THROMBOPLASTIN TIME 81.7 Sec (23.0-35.0)
[2019-01-15] MEDS: INSULIN ASPART [NOVOLOG] 3 ML PEN SC ×6 (01:00→21:27)
[2019-01-15] MEDS: ACCU-CHEK XX ×6 (01:00→21:24)
[2019-01-15 02:06] LABS: PARTIAL THROMBOPLASTIN TIME 60.2 Sec (23.0-35.0)
[2019-01-15 04:59] LABS: ADD MAN DIFF? NO
[2019-01-15 05:06] LABS: WHITE BLOOD COUNT 6.4 10^3/ul (4.8-10.8)
[2019-01-15 05:06] LABS: ABNORMAL IP MESSAGE 1; EOSINOPHILS # 0.1 10^3/ul (0.0-0.5); EOSINOPHILS % 0.9 % (0.0-7.0); HEMATOCRIT 20.9 % (42.0-52.0); LYMPHOCYTES # 0.5 10^3/ul (0.8-2.9); MEAN CORPUSCULAR HEMOGLOBIN 29.8 pg (29.0-33.0); MEAN CORPUSCULAR HGB CONC 29.7 g/dl (32.0-37.0); MEAN CORPUSCULAR VOLUME 100.5 fl (82.0-101.0); MEAN PLATELET VOLUME 12.1 fl (7.4-10.4); MONOCYTE # 0.4 10^3/ul (0.3-0.9); MONOCYTES % 6.6 % (0.0-11.0); NEUTROPHIL # 5.3 10^3/ul (1.6-7.5); NEUTROPHILS % 83.1 % (39.0-77.0); NUCLEATED RED BLOOD CELLS # 0.1 10^3/ul (0.0-0.0); NUCLEATED RED BLOOD CELLS% 1.4 /100WBC (0.0-0.0); PLATELET COUNT 70 10^3/UL (140-415); POSITIVE DIFF @See below; RED BLOOD COUNT 2.08 10^6/ul (4.70-6.10); RED CELL DISTRIBUTION WIDTH 21.4 % (11.5-14.5)
[2019-01-15] MEDS: HYDROCORTISONE 100 MG INJ IV ×3 (05:09→21:23)
[2019-01-15] MEDS: MIDODRINE 5 MG TAB PO ×3 (05:10→22:00)
[2019-01-15 05:13] LABS: HEMOGLOBIN 6.2 g/dl (14.0-18.0)
[2019-01-15 05:42] LABS: ANION GAP 3 (5-13); BLOOD UREA NITROGEN 47 mg/dl (7-20); CALCIUM 8.7 mg/dl (8.4-10.2); CARBON DIOXIDE 27 mmol/L (21-31); CHLORIDE 105 mmol/L (97-110); CREATININE 3.38 mg/dl (0.61-1.24); Estimated GFR 19 mL/min (>60); GLUCOSE 156 mg/dl (70-220); MAGNESIUM 1.7 mg/dl (1.7-2.5); PHOSPHORUS 2.1 mg/dl (2.5-4.9); POTASSIUM 4.7 mmol/L (3.5-5.1); SODIUM 135 mmol/L (135-144)
[2019-01-15] MEDS: HEPARIN 25000 UNITS/250 ML 250 ML IV (06:03)
[2019-01-15] MEDS: INSULIN GLARGINE [LANTus] (100 UNITS/ML) SYG SC (08:00)
[2019-01-15 08:20] LABS: AADO2 Arterial 93.9 mmHg (7.0-24.0); Allen Test ACCEPTAB; Arterial Base Excess -3.2 mmol/L (-3.0-3); Arterial COHb 1.5 % (0.0-3.0); Arterial Fraction of Oxyhgb 89.1 % (93.0-99.0); Arterial HCO3 23.4 mmol/L (22.0-26.0); Arterial MetHb 0.6 % (0.0-1.5); Arterial pCO2 50.7 mmhg (35-45); Blood Gas IEPAP 18/8; MODE MASK - BIPAP; Site Right Radial
[2019-01-15] MEDS: HYDROCODONE/APAP (10/325) TAB PO (12:21)
[2019-01-15] MEDS: CEFEPIME 1GM/50 ML (PMX) 50 ML IVPB (12:22)
[2019-01-15] MEDS: DULOXETINE 30 MG CAP DR PO (12:22)
[2019-01-15] MEDS: PANTOPRAZOLE 40 MG INJ IV ×2 (12:22→21:23)
[2019-01-15] MEDS: ATORVASTATIN 10 MG TAB PO (12:23)
[2019-01-15] MEDS: FERROUS SULFATE (EC) 325 MG TAB PO ×2 (12:23→21:00)
[2019-01-15] MEDS: MULTIVIT/CA CARB/B CMPLX/FA TAB PO (12:24)
[2019-01-15] MEDS: PREGABALIN 25 MG CAP PO ×2 (12:28→21:00)
[2019-01-15] MEDS: TPN 1,000 ML IV (12:38)
[2019-01-15 15:55] LABS: HEMATOCRIT 20.8 % (42.0-52.0)
[2019-01-15 16:08] LABS: HEMOGLOBIN 6.4 g/dl (14.0-18.0)
[2019-01-15 16:23] LABS: PARTIAL THROMBOPLASTIN TIME 65.8 Sec (23.0-35.0)
[2019-01-15 21:49] LABS: HEMATOCRIT 23.3 % (42.0-52.0); HEMOGLOBIN 7.2 g/dl (14.0-18.0)
[2019-01-16] MEDS: ACCU-CHEK XX ×6 (01:00→21:22)
[2019-01-16] MEDS: INSULIN ASPART [NOVOLOG] 3 ML PEN SC ×6 (01:08→21:00)
[2019-01-16] MEDS: HEPARIN 25000 UNITS/250 ML 250 ML IV ×2 (03:50→21:38)
[2019-01-16 05:12] LABS: ADD MAN DIFF? NO
[2019-01-16 05:19] LABS: ABNORMAL IP MESSAGE 1; BASOPHILS % 0.1 % (0.0-2.0); EOSINOPHILS # 0.1 10^3/ul (0.0-0.5); EOSINOPHILS % 1.1 % (0.0-7.0); HEMATOCRIT 21.2 % (42.0-52.0); LYMPHOCYTES # 0.5 10^3/ul (0.8-2.9); LYMPHOCYTES % 7.6 % (15.0-51.0); MEAN CORPUSCULAR HGB CONC 30.7 g/dl (32.0-37.0); MEAN CORPUSCULAR VOLUME 97.7 fl (82.0-101.0); MEAN PLATELET VOLUME 12.3 fl (7.4-10.4); MONOCYTE # 0.5 10^3/ul (0.3-0.9); MONOCYTES % 6.6 % (0.0-11.0); NEUTROPHIL # 5.8 10^3/ul (1.6-7.5); NEUTROPHILS % 82.5 % (39.0-77.0); NUCLEATED RED BLOOD CELLS # 0.2 10^3/ul (0.0-0.0); NUCLEATED RED BLOOD CELLS% 2.8 /100WBC (0.0-0.0); PLATELET COUNT 64 10^3/UL (140-415); POSITIVE DIFF @See below; RED BLOOD COUNT 2.17 10^6/ul (4.70-6.10); RED CELL DISTRIBUTION WIDTH 20.3 % (11.5-14.5)
[2019-01-16 05:19] LABS: WHITE BLOOD COUNT 7.1 10^3/ul (4.8-10.8)
[2019-01-16 05:42] LABS: PARTIAL THROMBOPLASTIN TIME 46.8 Sec (23.0-35.0)
[2019-01-16 05:45] LABS: ANION GAP 3 (5-13); BLOOD UREA NITROGEN 40 mg/dl (7-20); CALCIUM 8.4 mg/dl (8.4-10.2); CARBON DIOXIDE 30 mmol/L (21-31); CHLORIDE 102 mmol/L (97-110); CREATININE 2.57 mg/dl (0.61-1.24); Estimated GFR 26 mL/min (>60); GLUCOSE 148 mg/dl (70-220); INR 1.11; MAGNESIUM 1.6 mg/dl (1.7-2.5); PHOSPHORUS 2.6 mg/dl (2.5-4.9); POTASSIUM 4.7 mmol/L (3.5-5.1); PROTIME 14.4 Sec (11.9-14.9); PT RATIO 1.1; SODIUM 135 mmol/L (135-144)
[2019-01-16 05:56] LABS: HEMOGLOBIN 6.5 g/dl (14.0-18.0)
[2019-01-16] MEDS: HYDROCORTISONE 100 MG INJ IV ×3 (06:08→21:20)
[2019-01-16] MEDS: MAGNESIUM SULFATE 2 GM/50 ML 50 ML IVPB (06:22)
[2019-01-16] MEDS: MIDODRINE 5 MG TAB PO ×3 (06:29→21:21)
[2019-01-16 06:46] LABS: IMMEDIATE SPIN CROSSMATCH 1 4
[2019-01-16 07:31] LABS: AADO2 Arterial 96.9 mmHg (7.0-24.0); Allen Test ACCEPTAB; Arterial Base Excess 1.2 mmol/L (-3.0-3); Arterial Blood Gas Oxygen Sat 92.1 mmHG (95.0-98.0); Arterial COHb 1.4 % (0.0-3.0); Arterial Fraction of Oxyhgb 90.2 % (93.0-99.0); Arterial MetHb 0.7 % (0.0-1.5); Arterial pCO2 49.5 mmhg (35-45); Blood Gas IEPAP 18/8; Blood Gas PS 10; MODE MASK - BIPAP; Site Right Radial
[2019-01-16] MEDS: EPOETIN ALFA-EPBX (ESRD) 10,000 UNIT/ML VIAL SC (08:36)
[2019-01-16] MEDS: PANTOPRAZOLE 40 MG INJ IV ×2 (08:37→21:20)
[2019-01-16] MEDS: CEFEPIME 1GM/50 ML (PMX) 50 ML IVPB (08:37)
[2019-01-16] MEDS: TPN 1,000 ML IV (08:58)
[2019-01-16] MEDS: ATORVASTATIN 10 MG TAB PO (09:00)
[2019-01-16] MEDS: FERROUS SULFATE (EC) 325 MG TAB PO ×2 (09:00→21:21)
[2019-01-16] MEDS: MULTIVIT/CA CARB/B CMPLX/FA TAB PO (09:00)
[2019-01-16] MEDS: DULOXETINE 30 MG CAP DR PO (09:00)
[2019-01-16] MEDS: PREGABALIN 25 MG CAP PO ×2 (09:00→21:21)
[2019-01-16] MEDS: INSULIN GLARGINE [LANTus] (100 UNITS/ML) SYG SC (09:05)
[2019-01-16 11:16] LABS: ADD MAN DIFF? NO
[2019-01-16 11:18] LABS: WHITE BLOOD COUNT 7.7 10^3/ul (4.8-10.8)
[2019-01-16 11:18] LABS: ABNORMAL IP MESSAGE 1; BASOPHILS % 0.1 % (0.0-2.0); EOSINOPHILS # 0.1 10^3/ul (0.0-0.5); EOSINOPHILS % 1.3 % (0.0-7.0); HEMATOCRIT 23.1 % (42.0-52.0); HEMOGLOBIN 7.2 g/dl (14.0-18.0); LYMPHOCYTES # 0.6 10^3/ul (0.8-2.9); LYMPHOCYTES % 7.7 % (15.0-51.0); MEAN CORPUSCULAR HEMOGLOBIN 30.8 pg (29.0-33.0); MEAN CORPUSCULAR HGB CONC 31.2 g/dl (32.0-37.0); MEAN CORPUSCULAR VOLUME 98.7 fl (82.0-101.0); MEAN PLATELET VOLUME 11.9 fl (7.4-10.4); MONOCYTE # 0.5 10^3/ul (0.3-0.9); MONOCYTES % 6.1 % (0.0-11.0); NEUTROPHIL # 6.4 10^3/ul (1.6-7.5); NEUTROPHILS % 83.4 % (39.0-77.0); NUCLEATED RED BLOOD CELLS # 0.2 10^3/ul (0.0-0.0); NUCLEATED RED BLOOD CELLS% 2.2 /100WBC (0.0-0.0); PLATELET COUNT 65 10^3/UL (140-415); POSITIVE DIFF @See below; RED BLOOD COUNT 2.34 10^6/ul (4.70-6.10); RED CELL DISTRIBUTION WIDTH 19.5 % (11.5-14.5)
[2019-01-16] MEDS: NORepinephrine 8MG/250 ML (PMX 250 ML IV (13:06)
[2019-01-16 14:00] LABS: AADO2 Arterial 219.8 mmHg (7.0-24.0); Allen Test ACCEPTAB; Arterial Base Excess 0.8 mmol/L (-3.0-3); Arterial Blood Gas Oxygen Sat 94.9 mmHG (95.0-98.0); Arterial COHb 1.5 % (0.0-3.0); Arterial Fraction of Oxyhgb 92.9 % (93.0-99.0); Arterial HCO3 27.3 mmol/L (22.0-26.0); Arterial MetHb 0.6 % (0.0-1.5); Blood Gas IEPAP 18/8; Blood Gas PS 10; MODE MASK - BIPAP; Site Right Radial
[2019-01-16 16:24] LABS: ADD MAN DIFF? NO
[2019-01-16 16:27] LABS: WHITE BLOOD COUNT 12.1 10^3/ul (4.8-10.8)
[2019-01-16 16:27] LABS: BASOPHILS % 0.2 % (0.0-2.0); EOSINOPHILS # 0.2 10^3/ul (0.0-0.5); EOSINOPHILS % 1.7 % (0.0-7.0); HEMATOCRIT 25.5 % (42.0-52.0); LYMPHOCYTES % 8.2 % (15.0-51.0); MEAN CORPUSCULAR HEMOGLOBIN 30.4 pg (29.0-33.0); MEAN CORPUSCULAR HGB CONC 31.4 g/dl (32.0-37.0); MEAN PLATELET VOLUME 11.6 fl (7.4-10.4); MONOCYTE # 0.8 10^3/ul (0.3-0.9); MONOCYTES % 6.5 % (0.0-11.0); NEUTROPHIL # 9.8 10^3/ul (1.6-7.5); NUCLEATED RED BLOOD CELLS # 0.5 10^3/ul (0.0-0.0); NUCLEATED RED BLOOD CELLS% 3.9 /100WBC (0.0-0.0); PLATELET COUNT 111 10^3/UL (140-415); RED BLOOD COUNT 2.63 10^6/ul (4.70-6.10); RED CELL DISTRIBUTION WIDTH 19.9 % (11.5-14.5)
[2019-01-16] MEDS: FAT EMULSION 20% 250 ML IV (17:14)
[2019-01-16 18:08] LABS: PARTIAL THROMBOPLASTIN TIME 85.6 Sec (23.0-35.0)
[2019-01-17] MEDS: ACCU-CHEK XX ×6 (01:30→21:28)
[2019-01-17] MEDS: INSULIN ASPART [NOVOLOG] 3 ML PEN SC ×6 (01:37→21:26)
[2019-01-17 02:14] LABS: PARTIAL THROMBOPLASTIN TIME 62.4 Sec (23.0-35.0)
[2019-01-17] MEDS: TPN 1,000 ML IV (04:57)
[2019-01-17] MEDS: HYDROCORTISONE 100 MG INJ IV ×3 (05:03→21:24)
[2019-01-17] MEDS: MIDODRINE 5 MG TAB PO ×3 (05:05→21:24)
[2019-01-17 05:37] LABS: ADD MAN DIFF? NO
[2019-01-17 05:43] LABS: WHITE BLOOD COUNT 7.5 10^3/ul (4.8-10.8)
[2019-01-17 05:43] LABS: ABNORMAL IP MESSAGE 1; EOSINOPHILS # 0.1 10^3/ul (0.0-0.5); EOSINOPHILS % 1.2 % (0.0-7.0); HEMATOCRIT 21.4 % (42.0-52.0); LYMPHOCYTES # 0.6 10^3/ul (0.8-2.9); LYMPHOCYTES % 7.7 % (15.0-51.0); MEAN CORPUSCULAR HEMOGLOBIN 30.5 pg (29.0-33.0); MEAN CORPUSCULAR HGB CONC 31.3 g/dl (32.0-37.0); MEAN CORPUSCULAR VOLUME 97.3 fl (82.0-101.0); MEAN PLATELET VOLUME 11.5 fl (7.4-10.4); MONOCYTE # 0.5 10^3/ul (0.3-0.9); MONOCYTES % 6.4 % (0.0-11.0); NEUTROPHIL # 6.3 10^3/ul (1.6-7.5); NUCLEATED RED BLOOD CELLS # 0.3 10^3/ul (0.0-0.0); POSITIVE DIFF @See below; RED CELL DISTRIBUTION WIDTH 19.9 % (11.5-14.5)
[2019-01-17 06:03] LABS: ANION GAP 2 (5-13); BLOOD UREA NITROGEN 30 mg/dl (7-20); CALCIUM 8.4 mg/dl (8.4-10.2); CARBON DIOXIDE 32 mmol/L (21-31); CHLORIDE 103 mmol/L (97-110); CREATININE 2.13 mg/dl (0.61-1.24); Estimated GFR 32 mL/min (>60); GLUCOSE 129 mg/dl (70-220); MAGNESIUM 1.8 mg/dl (1.7-2.5); PHOSPHORUS 2.1 mg/dl (2.5-4.9); SODIUM 137 mmol/L (135-144)
[2019-01-17 06:37] LABS: HEMOGLOBIN 6.7 g/dl (14.0-18.0)
[2019-01-17 06:38] LABS: PLATELET COUNT 64 10^3/UL (140-415)
[2019-01-17] MEDS: SOD CHLORIDE 0.9% 250 ML IV* (06:54)
[2019-01-17] MEDS: PREGABALIN 25 MG CAP PO ×2 (08:26→21:24)
[2019-01-17] MEDS: DULOXETINE 30 MG CAP DR PO (08:26)
[2019-01-17] MEDS: ATORVASTATIN 10 MG TAB PO (08:26)
[2019-01-17] MEDS: FERROUS SULFATE (EC) 325 MG TAB PO ×2 (08:26→21:24)
[2019-01-17] MEDS: MULTIVIT/CA CARB/B CMPLX/FA TAB PO (08:26)
[2019-01-17] MEDS: PANTOPRAZOLE 40 MG INJ IV ×2 (08:26→21:23)
[2019-01-17] MEDS: CEFEPIME 1GM/50 ML (PMX) 50 ML IVPB (08:27)
[2019-01-17 08:34] LABS: LACTIC ACID 0.7 mmol/L (0.5-2.0)
[2019-01-17] MEDS: INSULIN GLARGINE [LANTus] (100 UNITS/ML) SYG SC (08:36)
[2019-01-17] MEDS: SODIUM PHOSPHATE 15 MMOL in SOD CHLORIDE 0.9% 250 ML IVPB (12:27)
[2019-01-17 12:29] LABS: PROCALCITONIN 2.19 ng/mL (0.00-0.10)
[2019-01-17] MEDS: DESMOPRESSIN 20 MCG in SOD CHLORIDE 0.9% 50 ML IVPB (13:58)
[2019-01-17 15:23] LABS: PARTIAL THROMBOPLASTIN TIME 82.5 Sec (23.0-35.0)
[2019-01-17] MEDS ORDERED: VANCOMYCIN 1 GM 250 ML IVPB (16:00)
[2019-01-17 16:01] LABS: HEMATOCRIT 18.3 % (42.0-52.0)
[2019-01-17 16:04] LABS: HEMOGLOBIN 5.9 g/dl (14.0-18.0)
[2019-01-17] MEDS: EPOETIN ALFA-EPBX (ESRD) 10,000 UNIT/ML VIAL SC (16:42)
[2019-01-18] MEDS: TPN 1,000 ML IV ×2 (00:30→07:49)
[2019-01-18] MEDS: INSULIN ASPART [NOVOLOG] 3 ML PEN SC ×6 (01:05→21:00)
[2019-01-18] MEDS: ACCU-CHEK XX ×6 (01:06→21:00)
[2019-01-18 01:24] LABS: HEMATOCRIT 22.3 % (42.0-52.0); HEMOGLOBIN 7.4 g/dl (14.0-18.0)
[2019-01-18] MEDS: SOD CHLORIDE 0.9% 250 ML IV* (01:43)
[2019-01-18 02:40] LABS: IMMEDIATE SPIN CROSSMATCH 1 4
[2019-01-18] MEDS: MIDODRINE 5 MG TAB PO ×3 (05:06→21:31)
[2019-01-18] MEDS: HYDROCORTISONE 100 MG INJ IV ×3 (05:06→21:30)
[2019-01-18 06:09] LABS: ADD MAN DIFF? NO
[2019-01-18 06:13] LABS: ABNORMAL IP MESSAGE 1; BASOPHILS % 0.1 % (0.0-2.0); EOSINOPHILS # 0.1 10^3/ul (0.0-0.5); HEMATOCRIT 24.9 % (42.0-52.0); HEMOGLOBIN 8.1 g/dl (14.0-18.0); LYMPHOCYTES # 0.7 10^3/ul (0.8-2.9); LYMPHOCYTES % 9.4 % (15.0-51.0); MEAN CORPUSCULAR HGB CONC 32.5 g/dl (32.0-37.0); MEAN CORPUSCULAR VOLUME 95.4 fl (82.0-101.0); MEAN PLATELET VOLUME 11.3 fl (7.4-10.4); MONOCYTE # 0.5 10^3/ul (0.3-0.9); MONOCYTES % 7.7 % (0.0-11.0); NEUTROPHIL # 5.7 10^3/ul (1.6-7.5); NEUTROPHILS % 80.4 % (39.0-77.0); NUCLEATED RED BLOOD CELLS # 0.1 10^3/ul (0.0-0.0); PLATELET COUNT 56 10^3/UL (140-415); POSITIVE DIFF @See below; RED BLOOD COUNT 2.61 10^6/ul (4.70-6.10); RED CELL DISTRIBUTION WIDTH 18.3 % (11.5-14.5)
[2019-01-18 06:13] LABS: WHITE BLOOD COUNT 7.1 10^3/ul (4.8-10.8)
[2019-01-18 06:41] LABS: ANION GAP 3 (5-13); BLOOD UREA NITROGEN 43 mg/dl (7-20); CALCIUM 8.4 mg/dl (8.4-10.2); CARBON DIOXIDE 28 mmol/L (21-31); CHLORIDE 104 mmol/L (97-110); CREATININE 2.99 mg/dl (0.61-1.24); Estimated GFR 22 mL/min (>60); GLUCOSE 120 mg/dl (70-220); MAGNESIUM 1.6 mg/dl (1.7-2.5); PHOSPHORUS 3.8 mg/dl (2.5-4.9); POTASSIUM 4.5 mmol/L (3.5-5.1); SODIUM 135 mmol/L (135-144)
[2019-01-18] MEDS: MAGNESIUM SULFATE 2 GM/50 ML 50 ML IVPB (07:37)
[2019-01-18] MEDS: PANTOPRAZOLE 40 MG INJ IV ×2 (09:25→21:20)
[2019-01-18] MEDS: INSULIN GLARGINE [LANTus] (100 UNITS/ML) SYG SC (09:30)
[2019-01-18 10:08] LABS: ADD MAN DIFF? NO
[2019-01-18 10:13] LABS: WHITE BLOOD COUNT 6.6 10^3/ul (4.8-10.8)
[2019-01-18 10:13] LABS: ABNORMAL IP MESSAGE 1; EOSINOPHILS # 0.1 10^3/ul (0.0-0.5); EOSINOPHILS % 0.9 % (0.0-7.0); HEMATOCRIT 24.5 % (42.0-52.0); LYMPHOCYTES # 0.5 10^3/ul (0.8-2.9); LYMPHOCYTES % 7.6 % (15.0-51.0); MEAN CORPUSCULAR HEMOGLOBIN 30.8 pg (29.0-33.0); MEAN CORPUSCULAR HGB CONC 32.7 g/dl (32.0-37.0); MEAN CORPUSCULAR VOLUME 94.2 fl (82.0-101.0); MEAN PLATELET VOLUME 11.7 fl (7.4-10.4); MONOCYTE # 0.5 10^3/ul (0.3-0.9); MONOCYTES % 6.8 % (0.0-11.0); NEUTROPHIL # 5.5 10^3/ul (1.6-7.5); NEUTROPHILS % 83.2 % (39.0-77.0); NUCLEATED RED BLOOD CELLS # 0.1 10^3/ul (0.0-0.0); NUCLEATED RED BLOOD CELLS% 1.7 /100WBC (0.0-0.0); PLATELET COUNT 59 10^3/UL (140-415); POSITIVE DIFF @See below; RED CELL DISTRIBUTION WIDTH 18.4 % (11.5-14.5)
[2019-01-18 10:33] LABS: INR 1.06; PROTIME 13.9 Sec (11.9-14.9); PT RATIO 1.1
[2019-01-18] MEDS: MULTIVIT/CA CARB/B CMPLX/FA TAB PO (11:01)
[2019-01-18] MEDS: DULOXETINE 30 MG CAP DR PO (11:01)
[2019-01-18] MEDS: FERROUS SULFATE (EC) 325 MG TAB PO ×2 (11:01→21:20)
[2019-01-18] MEDS: ATORVASTATIN 10 MG TAB PO (11:01)
[2019-01-18] MEDS: PREGABALIN 25 MG CAP PO ×2 (11:01→21:21)
[2019-01-18 17:56] LABS: ABNORMAL IP MESSAGE 1; HEMATOCRIT 24.6 % (42.0-52.0); HEMOGLOBIN 7.8 g/dl (14.0-18.0); MEAN CORPUSCULAR HEMOGLOBIN 30.8 pg (29.0-33.0); MEAN CORPUSCULAR HGB CONC 31.7 g/dl (32.0-37.0); MEAN CORPUSCULAR VOLUME 97.2 fl (82.0-101.0); MEAN PLATELET VOLUME 10.5 fl (7.4-10.4); NUCLEATED RED BLOOD CELLS% 1.6 /100WBC (0.0-0.0); PLATELET COUNT 47 10^3/UL (140-415); POSITIVE DIFF @See below; RED BLOOD COUNT 2.53 10^6/ul (4.70-6.10); RED CELL DISTRIBUTION WIDTH 18.7 % (11.5-14.5)
[2019-01-18 17:56] LABS: WHITE BLOOD COUNT 6.9 10^3/ul (4.8-10.8)
[2019-01-18 18:02] LABS: ADD MAN DIFF? YES
[2019-01-18 18:12] LABS: PARTIAL THROMBOPLASTIN TIME 28.1 Sec (23.0-35.0)
[2019-01-18] MEDS: HEPARIN 25000 UNITS/250 ML 250 ML IV (18:24)
[2019-01-18 18:35] LABS: ANISOCYTOSIS 2+ (0-0); BAND NEUTROPHILS % (M) 1 % (0-4); ERYTHROBLAST% (NRBC) (M) 2 % (0-0); LYMPHOCYTES #M 0.2 10^3/ul (0.8-2.9); LYMPHOCYTES % (M) 3 % (15-51); METAMYELOCYTES %M 1 % (0-0); MICROCYTOSIS 1+ (0-0); MONOCYTE #M 0.2 10^3/ul (0.3-0.9); MONOCYTES % (M) 3 % (0-11); PLATELET ESTIMATE SIG DECREASED; POIKILOCYTOSIS 1+ (0-0); POLYCHROMASIA 3+ (0-0); SEG NEUT #M 6.3 10^3/ul (1.6-7.5); SEGMENTED NEUTROPHILS (M) % 92 % (39-77); SMUDGE%M 1 % (0-0)
== END 2019-01-19 01:23 | disposition other institution (70) | DRG 377 ==
LOC: ICU 01-01 11:06
PROC: 30233N1 Transfusion of Nonautologous Red Blood Cells into Peripheral Vein, Percutaneous Approach (ICD-10-PCS; principal; 2019-01-01 14:13)
PROC: 30233R1 Transfusion of Nonautologous Platelets into Peripheral Vein, Percutaneous Approach (ICD-10-PCS; 2019-01-01 14:13)
PROC: 0W3P8ZZ Control Bleeding in Gastrointestinal Tract, Via Natural or Artificial Opening Endoscopic (ICD-10-PCS; 2019-01-01 14:13)
PROC: 0DJ08ZZ Inspection of Upper Intestinal Tract, Via Natural or Artificial Opening Endoscopic (ICD-10-PCS; 2019-01-01 14:13)
PROC: 06HY33Z Insertion of Infusion Device into Lower Vein, Percutaneous Approach (ICD-10-PCS; 2019-01-01 14:13)
PROC: 05H633Z Insertion of Infusion Device into Left Subclavian Vein, Percutaneous Approach (ICD-10-PCS; 2019-01-01 14:13)
PROC: 5A1D70Z Performance of Urinary Filtration, Intermittent, Less than 6 Hours Per Day (ICD-10-PCS; 2019-01-01 14:13)
PROC: 5A1D70Z Performance of Urinary Filtration, Intermittent, Less than 6 Hours Per Day (ICD-10-PCS; 2019-01-01 14:13)
PROC: 5A1D70Z Performance of Urinary Filtration, Intermittent, Less than 6 Hours Per Day (ICD-10-PCS; 2019-01-01 14:13)
PROC: 5A1D70Z Performance of Urinary Filtration, Intermittent, Less than 6 Hours Per Day (ICD-10-PCS; 2019-01-01 14:13)
PROC: 5A1D70Z Performance of Urinary Filtration, Intermittent, Less than 6 Hours Per Day (ICD-10-PCS; 2019-01-01 14:13)
PROC: 5A1D70Z Performance of Urinary Filtration, Intermittent, Less than 6 Hours Per Day (ICD-10-PCS; 2019-01-01 14:13)
PROC: 5A1D70Z Performance of Urinary Filtration, Intermittent, Less than 6 Hours Per Day (ICD-10-PCS; 2019-01-01 14:13)
PROC: 5A1D70Z Performance of Urinary Filtration, Intermittent, Less than 6 Hours Per Day (ICD-10-PCS; 2019-01-01 14:13)
PROC: 5A1D70Z Performance of Urinary Filtration, Intermittent, Less than 6 Hours Per Day (ICD-10-PCS; 2019-01-01 14:13)
PROC: 5A1D70Z Performance of Urinary Filtration, Intermittent, Less than 6 Hours Per Day (ICD-10-PCS; 2019-01-01 14:13)
PROC: 5A1D70Z Performance of Urinary Filtration, Intermittent, Less than 6 Hours Per Day (ICD-10-PCS; 2019-01-01 14:13)
PROC: 5A1D70Z Performance of Urinary Filtration, Intermittent, Less than 6 Hours Per Day (ICD-10-PCS; 2019-01-01 14:13)
DX: K92.2 Gastrointestinal hemorrhage, unspecified (principal); N18.6 End stage renal disease; J96.21 Acute and chronic respiratory failure with hypoxia; J96.02 Acute respiratory failure with hypercapnia; D62 Acute posthemorrhagic anemia; E27.40 Unspecified adrenocortical insufficiency; E66.2 Morbid (severe) obesity with alveolar hypoventilation; Q61.3 Polycystic kidney, unspecified; R57.9 Shock, unspecified; G93.40 Encephalopathy, unspecified; I12.0 Hypertensive chronic kidney disease with stage 5 chronic kidney disease or end stage renal disease; K57.92 Diverticulitis of intestine, part unspecified, without perforation or abscess without bleeding; K63.3 Ulcer of intestine; E11.8 Type 2 diabetes mellitus with unspecified complications; E11.21 Type 2 diabetes mellitus with diabetic nephropathy; E11.22 Type 2 diabetes mellitus with diabetic chronic kidney disease; I95.9 Hypotension, unspecified; I48.91 Unspecified atrial fibrillation; I25.10 Atherosclerotic heart disease of native coronary artery without angina pectoris; I73.9 Peripheral vascular disease, unspecified; K29.60 Other gastritis without bleeding; Z68.35 Body mass index [BMI] 35.0-35.9, adult; Z99.2 Dependence on renal dialysis; D64.9 Anemia, unspecified; D63.1 Anemia in chronic kidney disease; E66.01 Morbid (severe) obesity due to excess calories; Z79.01 Long term (current) use of anticoagulants; Z79.4 Long term (current) use of insulin; Z95.2 Presence of prosthetic heart valve; Z66 Do not resuscitate; D69.6 Thrombocytopenia, unspecified; Z95.1 Presence of aortocoronary bypass graft; G47.30 Sleep apnea, unspecified
CPT/HCPCS: 36430; 36573; 36600; 71045; 74176; 75635; 75726; 78278; 80048; 80053; 80076; 80202; 82533; 82803; 82962; 83605; 83735; 84100; 84132; 84134; 84145; 84478; 85014; 85018; 85025; 85049; 85610; 85670; 85730; 86644; 86706; 86850; 86900; 86901; 86920; 87040-91; 87081; 87340; 90935; 94660